=== PATIENT | female | born 1955 | race Caucasian/White ===

== ENCOUNTER 2020-03-28 14:20 | Inpatient (IN) ==
--- NOTE | 2020-03-28 15:36 | Emergency Department Note ---
Impression & Plan Atrial fibrillation with RVR, SHALOM (acute kidney injury), Venous ulcers of both lower extremities, Edema ED Provider Note Provider: Phi Leary MD DATE OF SERVICE:03/28/2020 CHIEF COMPLAINT: Leg swelling HISTORY OF PRESENT ILLNESS: Patient is a 64-year-old female who denies past medical history but does not see a doctor presenting here today brought by her sister due to bilateral leg swelling and weeping as well as some shortness of breath. Patient states her cat scratched her left garcia about a month ago and since then she is again developed some bilateral swelling and wounds with some now weeping of the bilateral legs. Patient states she is some asthma and feels a little bit short of breath. Patient states that she feels that she is losing a little bit of weight but swelling and some in her abdomen and her legs. Denies any chest pain, abdominal pain, nausea, vomiting, fevers, or falls. Patient states she has been putting some Neosporin on some wounds on her legs and the redness seems a little bit less. Denies a history of heart issues or liver issues. Patient's sister says she does find about this today and brought her here and states the patient looks thinner in her face and her arms are more swollen her abdomen and legs. REVIEW OF SYSTEMS: A total of 10 review of systems was obtained and negative except as stated above in the HPI. PAST MEDICAL HISTORY: As noted above MEDICATIONS: Denies prescription medication SOCIAL HISTORY: Patient lives by herself with her cat, is a smoker, denies alcohol use PHYSICAL EXAM: GENERAL: alert and oriented seated in the stretcher appears somewhat tearful Head: normocephalic and atraumatic EYES: No injection, discharge or icterus. NECK: Trachea midline. ENT: Mucous membranes pink and moist. LUNGS: Airway patent. No retractions slightly tachypneic. Breath sounds diminished in the bases with a few scattered wheezes. HEART: Tachycardic irregular rate and rhythm. No chest wall tenderness ABDOMEN: Soft but moderately distended without tenderness or guarding. SKIN: Acyanotic, warm, dry, without rashes EXTREMITIES: Bilateral lower extremity edema to the sacrum 2-3+. There is some weeping clear serous fluid the bilateral lower legs with few scattered areas of approximately 5 to 8 mm open wounds on both shins and calves. Mild diffuse erythema here. No crepitus. NEUROLOGICAL: No focal deficits. No aphasia. No facial droop or slurred speech. Intact sensation in the bilateral feet. EK bpm atrial fibrillation with rapid ventricular response. No acute ST segment elevation noted with some slight inferior ST flattening and nonspecific T wave changes. QTc 486. No priors available. CONTINUOUS CARDIAC MONITORING: was ordered and showed a heart rate of 100s-140s bpm in rapid atrial fibrillation Patient's laboratory studies and imaging reviewed. Differential includes Infection, dehydration, metabolic abnormality, hypo/hyperglycemia, electrolyte disturbance, anemia, hypoxia, cardiac sources, ias well as other pathologies. IMPRESSION/MEDICAL DECISION MAKING: Patient with significant lower extremity edema now tachycardic and somewhat tachypneic. Denies significant pain at this time. Question possible infection of the legs versus fluid overload from possible liver versus cardiac source versus renal source. Broad work-up was entertained. Cultures from the legs were obtained from the surface and sent to the lab. Blood culture and lactate will be obtained. Patient is significantly tachycardic upon arrival somewhat tachypneic. EKG reveals to be rapid atrial fibrillation and started on diltiazem for rate control. Troponin elevated without chest pain here likely represents demand ischemia in the setting of A. fib RVR and proBNP is also significantly elevated. Do believe she is going into heart failure with this causing the swelling in her legs secondary to this rapid A. fib. Chest x-ray does appear to have some pulmonary edema but not requiring oxygen at the current time. Given diltiazem bolus and drip with improvement of heart rate; heparinization for anticoagula tion for the A. fib was started. Likely require some diuresis and likely with a bit of SHALOM. Doubt this is sepsis. Did give a dose of ceftriaxone to cover the small wounds on bilateral legs. Both surface culture and blood cultures were obtained previously. Lactate not significantly elevated. TSH within normal limits. Covid testing negative. Updated patient and sister in the room and hospitalist was contacted. DIAGNOSIS: New onset atrial fibrillation biventricular spines, CHF, leg wounds DISPOSITION: Hospitalist will evaluate Patient was agreeable with this plan. Critical Care I have personally spent 35 minutes of critical care time in the direct managemen t of this patient. This includes bedside care, interpretation of diagnostic studies, and testing, discussion with consultants, patient, and family members, and other required patient management activities. These 35 minutes is in excess of all separately billable procedures. Past Med/Surg History Medical History Tobacco use Family History (Updated 03/28/20 @ 18:16 by Irene Khan PA-C) Father Cancer Bladder Mother Cancer Breast Other Hypertension Social History (Updated 03/28/20 @ 18:17 by Irene Khan PA-C) Smoking Status: Current every day smoker Cigarettes Per Day: 5-10; Hx Alcohol Use: No Hx Substance Use: No Preferred Language: Bruneian Beliefs That Will Affect Care: None Current Living Situation: Family Current Living Situation Comment: Roomate x 2 Other Information That Helps Us Care for You: No Feels Safe at Home: Yes Safety Concerns: Feels Safe At This Time Assistive Devices: Denture - Upper, Denture - Lower and Glasses Allergies Allergies Allergy/AdvReac Type Severity Reaction Status Date / Time No Known Allergies Allergy Verified 03/28/20 17:02 Home Meds Home Medications Medication Instructions Recorded Confirmed dextromethorphan-guaifenesin 1 tab PO QAM 03/28/20 03/28/20 [Mucinex DM] ibuprofen [Advil] 200 mg PO DIRECTED PRN 03/28/20 03/28/20 Results & Data (ED) Vital Signs Vital Signs - 24 hr 03/28/20 14:36 03/28/20 15:25 03/28/20 15:36 Temperature 36.8 C Temperature Source Temporal Artery Scan Pulse Rate 144 H 147 H 145 H Pulse Rate from SpO2 Sensor 147 H 151 H Respiratory Rate 28 H 33 H 28 H Respiratory Effort / Characteristics Non-Labored Respiratory Depth Normal Blood Pressure 151/102 H 152/116 H Blood Pressure Mean 118 128 Blood Pressure Position Sitting Pulse Oximetry 96 97 97 Oxygen Delivery Method Room Air Sepsis Recent Fever Within 48 Hours No Sepsis New/Unexplained Change in Mental Status No Sepsis Action Taken by Nursing No Action Required 03/28/20 15:40 03/28/20 15:50 03/28/20 16:00 Temperature Temperature Source Pulse Rate 149 H 165 H 150 H Pulse Rate from SpO2 Sensor 172 H 148 H Respiratory Rate 37 H 26 H 34 H Respiratory Effort / Characteristics Respiratory Depth Blood Pressure Blood Pressure Mean Blood Pressure Position Pulse Oximetry 93 97 Oxygen Delivery Method Sepsis Recent Fever Within 48 Hours Sepsis New/Unexplained Change in Mental Status Sepsis Action Taken by Nursing 03/28/20 16:04 03/28/20 16:10 03/28/20 16:20 Temperature Temperature Source Pulse Rate 144 H 160 H Pulse Rate from SpO2 Sensor 139 H Respiratory Rate 25 H 20 Respiratory Effort / Characteristics Respiratory Depth Blood Pressure Blood Pressure Mean Blood Pressure Position Pulse Oximetry 96 94 Oxygen Delivery Method Room Air Sepsis Recent Fever Within 48 Hours Sepsis New/Unexplained Change in Mental Status Sepsis Action Taken by Nursing 03/28/20 16:30 03/28/20 16:40 03/28/20 16:50 Temperature Temperature Source Pulse Rate 138 H 125 H 126 H Pulse Rate from SpO2 Sensor 134 H 121 H 149 H Respiratory Rate 17 21 25 H Respiratory Effort / Characteristics Respiratory Depth Blood Pressure 129/108 H Blood Pressure Mean 115 Blood Pressure Position Pulse Oximetry 97 94 94 Oxygen Delivery Method Room Air Room Air Room Air Sepsis Recent Fever Within 48 Hours Sepsis New/Unexplained Change in Mental Status Sepsis Action Taken by Nursing 03/28/20 17:00 03/28/20 17:10 03/28/20 17:20 Temperature Temperature Source Pulse Rate 123 H 122 H 115 H Pulse Rate from SpO2 Sensor 120 H Respiratory Rate 27 H 29 H 19 Respiratory Effort / Characteristics Respiratory Depth Blood Pressure 111/72 Blood Pressure Mean 85 Blood Pressure Position Pulse Oximetry 92 Oxygen Delivery Method Room Air Sepsis Recent Fever Within 48 Hours Sepsis New/Unexplained Change in Mental Status Sepsis Action Taken by Nursing 03/28/20 17:30 03/28/20 17:40 03/28/20 17:50 Temperature Temperature Source Pulse Rate 123 H 116 H 118 H Pulse Rate from SpO2 Sensor Respiratory Rate 21 21 21 Respiratory Effort / Characteristics Respiratory Depth Blood Pressure 123/92 Blood Pressure Mean 102 Blood Pressure Position Pulse Oximetry Oxygen Delivery Method Sepsis Recent Fever Within 48 Hours Sepsis New/Unexplained Change in Mental Status Sepsis Action Taken by Nursing 03/28/20 18:00 03/28/20 18:10 Temperature Temperature Source Pulse Rate 124 H 110 H Pulse Rate from SpO2 Sensor Respiratory Rate 21 23 Respiratory Effort / Characteristics Respiratory Depth Blood Pressure 118/94 Blood Pressure Mean 102 Blood Pressure Position Pulse Oximetry Oxygen Delivery Method Sepsis Recent Fever Within 48 Hours Sepsis New/Unexplained Change in Mental Status Sepsis Action Taken by Nursing Laboratory Data Result diagrams: 03/28/20 15:55 03/28/20 15:55 Lab Results 03/28/20 03/28/20 03/28/20 Range/Units 15:55 15:55 15:55 WBC 11.09 H (4.8-10.8) K/uL RBC 5.02 (4.2-5.4) M/uL Hgb 14.6 (12.0-16.0) g/dL Hct 44.1 (37-47) % MCV 87.8 (80-100) fL MCH 29.1 (25-34) pg MCHC 33.1 (32-36) g/dL RDW Std Deviation 53.3 H (36.4-46.3) fL RDW Coeff of Michelle 16.5 H (11.5-14.5) % Plt Count 276 (130-400) K/uL MPV 11.8 H (7.4-10.4) fL Immature Gran % (Auto) 0.3 % Neut % (Auto) 76.8 % Lymph % (Auto) 11.7 % Churchill % (Auto) 10.6 % Eos % (Auto) 0.3 % Baso % (Auto) 0.3 % Neut # (Auto) 8.53 H (1.4-6.5) K/uL Lymph # (Auto) 1.30 (1.2-3.4) K/uL Churchill # (Auto) 1.17 H (0.11-0.59) K/uL Eos # (Auto) 0.03 (0-0.5) K/uL Baso # (Auto) 0.03 (0-0.2) K/uL Immature Gran # (Auto) 0.03 H (0.00-0.02) K/uL PT 11.9 (9.0-12.0) Seconds INR 1.1 (0.9-1.1) APTT 23.7 (21.0-31.0) Seconds PTT Ratio 0.8 Sodium 137 (136-145) mmol/L Potassium 3.8 (3.5-5.1) mmol/L Chloride 109 H (98-107) mmol/L Carbon Dioxide 22 (21-32) mmol/L Anion Gap 6.0 (3-11) BUN 31 H (7-18) mg/dl Creatinine 1.52 H (0.6-1.2) mg/dl Est Cr Clr Drug Dosing 38.3 ml/min Est GFR ( Amer) 41.0 Est GFR (Non-Af Amer) 35.4 BUN/Creatinine Ratio 20.6 H (10-20) Glucose 116 H (70-99) mg/dl Lactate (0.4-2.0) mmol/L Calcium 8.8 (8.5-10.1) mg/dl Magnesium 2.2 (1.8-2.4) mg/dl Total Bilirubin 1.2 H (0.2-1) mg/dl AST 31 (15-37) U/L ALT 41 (12-78) U/L Alkaline Phosphatase 141 H (45-117) U/L Troponin I 0.856 H* (0-0.045) ng/ml C-Reactive Protein 3.40 H (0-0.29) mg/dl NT-Pro-B Natriuret Pep 97839 H (0-900) pg/ml Total Protein 7.6 (6.4-8.2) gm/dl Albumin 3.3 L (3.4-5.0) gm/dl Globulin 4.3 H (2.5-4.0) gm/dl Albumin/Globulin Ratio 0.8 L (0.9-2) TSH 1.560 (0.300-4.500) uIu/ml Specimen Hemolysis COVID-19 Eval Order SARS-CoV-2 (PCR) (Negative) Influenza Type A (PCR) (Neg) Influenza Type B (PCR) (Neg) RSV (RT-PCR) (Neg) 03/28/20 03/28/20 03/28/20 Range/Units 16:20 16:20 16:20 WBC (4.8-10.8) K/uL RBC (4.2-5.4) M/uL Hgb (12.0-16.0) g/dL Hct (37-47) % MCV (80-100) fL MCH (25-34) pg MCHC (32-36) g/dL RDW Std Deviation (36.4-46.3) fL RDW Coeff of Michelle (11.5-14.5) % Plt Count (130-400) K/uL MPV (7.4-10.4) fL Immature Gran % (Auto) % Neut % (Auto) % Lymph % (Auto) % Churchill % (Auto) % Eos % (Auto) % Baso % (Auto) % Neut # (Auto) (1.4-6.5) K/uL Lymph # (Auto) (1.2-3.4) K/uL Churchill # (Auto) (0.11-0.59) K/uL Eos # (Auto) (0-0.5) K/uL Baso # (Auto) (0-0.2) K/uL Immature Gran # (Auto) (0.00-0.02) K/uL PT (9.0-12.0) Seconds INR (0.9-1.1) APTT (21.0-31.0) Seconds PTT Ratio Sodium (136-145) mmol/L Potassium (3.5-5.1) mmol/L Chloride (98-107) mmol/L Carbon Dioxide (21-32) mmol/L Anion Gap (3-11) BUN (7-18) mg/dl Creatinine (0.6-1.2) mg/dl Est Cr Clr Drug Dosing ml/min Est GFR ( Amer) Est GFR (Non-Af Amer) BUN/Creatinine Ratio (10-20) Glucose (70-99) mg/dl Lactate 1.8 (0.4-2.0) mmol/L Calcium (8.5-10.1) mg/dl Magnesium (1.8-2.4) mg/dl Total Bilirubin (0.2-1) mg/dl AST (15-37) U/L ALT (12-78) U/L Alkaline Phosphatase (45-117) U/L Troponin I (0-0.045) ng/ml C-Reactive Protein (0-0.29) mg/dl NT-Pro-B Natriuret Pep (0-900) pg/ml Total Protein (6.4-8.2) gm/dl Albumin (3.4-5.0) gm/dl Globulin (2.5-4.0) gm/dl Albumin/Globulin Ratio (0.9-2) TSH (0.300-4.500) uIu/ml Specimen Hemolysis COVID-19 Eval Order CovFluRsv at [facility] SARS-CoV-2 (PCR) NEGATIVE (Negative) Influenza Type A (PCR) Negative (Neg) Influenza Type B (PCR) Negative (Neg) RSV (RT-PCR) Negative (Neg) Administered Medications Diltiazem HCl 125 mg/ Dextrose 125 mls @ 5 mls/hr IV .Q24H [facility]; Protocol Stop: 04/27/20 16:14 Last Titration: 03/28/20 18:09 Dose: 15 mg/hr, 15 mls/hr Documented by: [id number] Cosigned by: [id number] Titration: 03/28/20 17:19 Dose: 10 mg/hr, 10 mls/hr Documented by: [id number] Cosigned by: [id number] Admin: 03/28/20 16:32 Dose: 5 mg/hr, 5 mls/hr Documented by: [id number] Cosigned by: [id number] Heparin Sodium/Dextrose (Heparin Sodium/Dextrose) 25,000 units in 500 mls @ 16 mls/hr IV .Q24H [facility]; Protocol Stop: 04/27/20 17:14 Last Admin: 03/28/20 17:27 Dose: 800 units/hr, 16 mls/hr Documented by: [id number] Cosigned by: [id number] Clindamycin Phosphate 600 mg/ (Dextrose) 54 mls @ 100 mls/hr IV Q8H [facility] Stop: 04/04/20 18:33 Last Admin: 03/28/20 20:19 Dose: 100 mls/hr Documented by: [id number] Nicotine (Nicotine 21 Mg/24 Hr Tdsy) 21 mg TD QAM [facility] Stop: 04/27/20 17:44 Last Admin: 03/28/20 17:49 Dose: 21 mg Documented by: [id number] Discontinued Medications Diltiazem HCl (Diltiazem Hcl 5 Mg/Ml 5 Ml Vial) 10 mg IV NOW STA Stop: 03/28/20 16:10 Last Admin: 03/28/20 16:31 Dose: 10 mg Documented by: [id number] Cosigned by: [id number] Heparin Sodium (Porcine) (Heparin Sod (Porcine) 1000 Unit/Ml 10 Ml Vial) Confirm Administered Dose 10,000 units .ROUTE .STK-MED ONE Stop: 03/28/20 17:16 Last Admin: 03/28/20 17:28 Dose: 4,000 units Documented by: [id number] Cosigned by: [id number] Heparin Sodium/Dextrose (Heparin Iv Low Dose With Bolus) 1 ea IV NOW STA; Protocol Stop: 03/28/20 17:08 Last Admin: 03/28/20 17:27 Dose: 1 ea Documented by: [id number] Ceftriaxone Sodium (Rocephin) 1,000 mg in 50 mls @ 100 mls/hr IV NOW STA Stop: 03/28/20 17:36 Last Admin: 03/28/20 17:19 Dose: 100 mls/hr Documented by: [id number] Miscellaneous (Stat Iv Infusion Titration Per Protocol) 1 ea N/A NOW STA Stop: 03/28/20 16:10 Last Admin: 03/28/20 16:32 Dose: 1 ea Documented by: [id number] Discharge Plan Visit Data Chief Complaint: Infection, Wound Stated Complaint: LOWER LEGS ARE SWOLLEN AND SEEPING ED Provider: Phi Leary Discharge Problem: Atrial fibrillation with RVR, SHALOM (acute kidney injury), Venous ulcers of both lower extremities, Edema Patient Disposition: Admitted As Inpatient Condition: Fair Discharge Instructions Interventions: ED Discharge Assessment Last Done: 03/28/20 19:31
[2020-03-28] MEDS ORDERED: STAT IV Infusion **Titration per Protocol STA (16:09)
[2020-03-28] MEDS ORDERED: dilTIAZem HCl 5 MG/ML 5 ML VIAL IV STA (16:09)
[2020-03-28 16:10] LABS: Basophils # (auto) 0.03 K/uL (0-0.2); Basophils % (auto) 0.3 %; Eosinophils # (auto) 0.03 K/uL (0-0.5); Eosinophils % (auto) 0.3 %; Hematocrit (blood only) 44.1 % (37-47); Hemoglobin 14.6 g/dL (12.0-16.0); Immature Granulocytes # (auto) 0.03 K/uL (0.00-0.02); Immature Granulocytes % (auto) 0.3 %; Lymphocytes % (auto) 11.7 %; Mean Corpuscular Hemoglobin 29.1 pg (25-34); Mean Corpuscular Hgb Conc 33.1 g/dL (32-36); Mean Corpuscular Volume 87.8 fL (80-100); Mean Platelet Volume 11.8 fL (7.4-10.4); Monocytes # (auto) 1.17 K/uL (0.11-0.59); Monocytes % (auto) 10.6 %; Neutrophils # (auto) 8.53 K/uL (1.4-6.5); Neutrophils % (auto) 76.8 %; Platelet Count 276 K/uL (130-400); RDW Coefficient of Variation 16.5 % (11.5-14.5); RDW Standard Deviation 53.3 fL (36.4-46.3); Red Blood Count 5.02 M/uL (4.2-5.4); White Blood Count 11.09 K/uL (4.8-10.8)
--- NOTE | 2020-03-28 16:12 | XRay Report ---
XR chest 1V portable CLINICAL HISTORY: Dyspnea, leg swelling COMPARISON STUDY: No previous studies for comparison. FINDINGS: Lung volumes are normal. There is no pneumothorax. There are small bilateral pleural effusi ons with bibasilar opacities. Interstitial thickening suggests pulmonary edema. There is moderate car diomegaly. IMPRESSION: 1. Mild interstitial pulmonary edema, small bilateral pleural fusions and bibasilar opacities which f avor atelectasis although consolidation could appear similar. Radiographic follow-up is recommended. 2. Cardiomegaly. ACT 112: Negative or not required by law. Electronically signed by: Stiven Gomez M.D. 03/28/2020 4:11 PM
[2020-03-28 16:24] LABS: INR 1.1 (0.9-1.1); Partial Thromboplastin Ratio 0.8; Partial Thromboplastin Time 23.7 Seconds (21.0-31.0); Prothrombin Time 11.9 Seconds (9.0-12.0)
[2020-03-28] MEDS: dilTIAZem HCL 125 MG in DEXTROSE 5% 100 ML IV SCH (16:32)
[2020-03-28 16:34] LABS: Potassium 3.8 mmol/L (3.5-5.1)
[2020-03-28 16:35] LABS: Albumin Level 3.3 gm/dl (3.4-5.0); BUN Creatinine Ratio 20.6 (10-20); Calcium 8.8 mg/dl (8.5-10.1); Creatinine Clr Calc Pharmacy 38.3 ml/min; Est GFR (Non-African American) 35.4; Magnesium 2.2 mg/dl (1.8-2.4)
[2020-03-28 16:51] LABS: Albumin Globulin Ratio 0.8 (0.9-2); Bilirubin,Total 1.2 mg/dl (0.2-1); C Reactive Protein 3.4 mg/dl (0-0.29); Globulin 4.3 gm/dl (2.5-4.0); Thyroid Stimulating Hormone 1.56 uIu/ml (0.300-4.500); Total Protein 7.6 gm/dl (6.4-8.2); Troponin I 0.856 ng/ml (0-0.045)
[2020-03-28] MEDS ORDERED: cefTRIAXone SODIUM 1,000 MG/50 ML BAG IV STA (17:07)
[2020-03-28] MEDS ORDERED: Heparin IV Low Dose WITH Bolus IV STA (17:07)
[2020-03-28 17:14] LABS: Influenza A virus by PCR Negative (Neg); Influenza B virus by PCR Negative (Neg); RSV by PCR Negative (Neg); SARS CoV2 RNA(COVID-19) InHosp NEGATIVE (Negative)
[2020-03-28] MEDS ORDERED: HEPARIN SOD (PORCINE) 1000 UNIT/ML 10 ML VIAL ONE (17:15)
[2020-03-28] MEDS: HEPARIN SODIUM/DEXTROSE 25,000 UNITS/500 ML BAG IV SCH (17:27)
--- NOTE | 2020-03-28 17:37 | History & Physical Report ---
Date of Service March 28, 2020 Assessment & Plan (1) Atrial fibrillation with RVR: -Admit to telemetry -Started on Cardizem drip in the ER, can titrate up as patient is currently on 5 mg, heart rate is in the 120s, was in 140s on admission, if no improvement in rate control with titrating Cardizem drip up can add on low-dose metoprolol p.o. in hopes of conversion -Continue heparin drip for now, discussed starting a DOAC with the patient at bedside, consider transition to one of these agents tomorrow -2D echo ordered -Troponin elevated at 0.856 on admission, trend x2 more sets -Patient is significantly volume overloaded at time of admission, 3+ pitting with numerous venous stasis ulcers over lower extremities which are weeping and saturating her sheets, pitting edema over the abdomen, encourage elevation of the legs -Lasix 40 mg IV BID with first dose now -Fluid restriction for now of 1500ml daily, pt had been drinking lots of fluids to help with reducing amount of edema in her legs, discussion (2) SHALOM (acute kidney injury): -Creatinine elevated at 1.52, BUN 31, no other available labs to compare to, likely elevated somewhat in the setting of severe hypervolemia, monitor with a.m. labs (3) Tobacco use: -Discussion regarding cessation at bedside held, patient would like to quit, nicotine patch placed on the patient's arm while at bedside. -Smokes 10 cigarettes/day, discussed attempting to reduce this by few cigarettes per week to help her quit (4) Venous ulcers of both lower extremities: -Developed over the past month, will order IV clindamycin to cover for any infectious source in the lower legs although this appears to be due to severe hypervolemia -Wound consulted -Bacitracin ointment once wounds stop weeping so much serosanguineous fluid -Wound culture of ulceration has been sent to the lab (5) Constipation: -Last bowel movement was 3 days ago, will add on MiraLAX and Dulcolax p.o. now (6) Edema: -Lower extremities and abdomen -Secondary to A. fib with RVR, await echo to determine if any systolic or diastolic dysfunction -Total bilirubin = 1.2, alk phos slightly elevated at 141-sister mention to ER attending that alcohol use was significant in the past, patient denies any alcohol use currently, concern for possible history of liver involvement? Consider further work-up for cirrhosis -Follow a.m. LFTs DVT PPx: Heparin drip CODE: Full code Dispo: From home, likely to remain in the hospital x 2 days, will need PCP established at [facility] prior to discharge History of Present Illness Primary Care Provider: NO PCP This is a 64-year-old female with no past medical history other than significant smoking history, 1/2 to 1 pack cigarettes daily since age 23, currently smoking 10 cigarettes daily who presents with progressive leg edema x 1 month. She reports that she has been elevating her legs and drinking lots of water to try and flush things out to help alleviate swelling of the legs. She has not follo wed with family doctor for many years, and only takes Mucinex and an occasional Advil for pain. Within the past month she has had progressive orthopnea and now must sleep with at least 2 pillows so that she does not feel shortness of breath, and notes that her legs are weeping from multiple sores which are open in various locations over her lower legs. There are no juju areas of bright red infection around the weeping wounds, however has had issues with keeping her legs dry. She reports that up until 1 month ago she was able to lie flat had no issues with swelling ever before. Her sister is present with her at bedside, and was the one who prompted her sister to come to the ER after seeing her legs earlier today. The patient also notes that she is somewhat constipated, last bowel movement was 3 days ago which is unusual for her. She has been eating and drinking well otherwise. Her abdomen feels swollen and distended currently but denies any specific pain. Once in the ER patient was found to have elevated BNP= 58911, troponin = 0.856, EKG showing A. fib with rates in the 140s, and so was started on Cardizem drip in the ER at 5 mg/h. COVID-19 is negative. Pt lives in an apartment with a roommate and his girlfriend. Denies any surgical hx other than wisdom teeth removal. Family Hx: mother had breast cancer and of other advanced age and complications 4 years ago, father of bladder cancer, hypertension in both sides of the family. Allergies Allergy/AdvReac Type Severity Reaction Status Date / Time No Known Allergies Allergy Verified 03/28/20 17:02 Home Medications Medication Instructions Recorded Confirmed Type dextromethorphan-guaifenesin 1 tab PO QAM 03/28/20 03/28/20 History [Mucinex DM] ibuprofen [Advil] 200 mg PO DIRECTED PRN 03/28/20 03/28/20 History Past Med/Surg History Medical History Tobacco use Family History (Updated 03/28/20 @ 18:16 by Irene Khan PA-C) Father Cancer Bladder Mother Cancer Breast Other Hypertension Social History (Updated 03/28/20 @ 18:17 by Irene Khan PA-C) Smoking Status: Current every day smoker Cigarettes Per Day: 5-10; Hx Alcohol Use: No Hx Substance Use: No Preferred Language: Icelandic Beliefs That Will Affect Care: None Current Living Situation: Family Current Living Situation Comment: Roomate x 2 Other Information That Helps Us Care for You: No Feels Safe at Home: Yes Safety Concerns: Feels Safe At This Time Assistive Devices: Denture - Upper, Denture - Lower and Glasses Review of Systems Review of Systems: Constitutional: No fever, sweats or chills Eyes: No diplopia, no worsening or blurred vision ENT: normal hearing, no trouble swallowing Respiratory: + Orthopnea with lying flat, + occasional cough, + occasional sputum, no hemoptysis, no dyspnea at rest or on exertion Cardiovascular: No chest pain, tightness or palpitations, no syncopal episodes or lightheadedness Abdomen: + Distention, + constipation, last BM was 3 days ago, no pain, nausea, vomiting, diarrhea Musculoskeletal: No joint pain, calf pain, + swelling as per HPI Neurologic: No weakness, numbness/tingling, or balance problems Psychiatric: No anxiety or depression Skin: No rash or itch, + multiple areas of weeping wounds over bilateral lower legs Physical Exam Physical Exam: General: awake, alert, no apparent distress Head: Normocephalic, atraumatic ENT: PERRL, EOMI, no pharyngeal exudate, mucous membranes moist Chest: On room air with O2 sats at 92%, Coarse breath sounds throughout, diminished at bases bilaterally Cardiac: Irregularly irregular, HR = 1 20s at bedside, no murmur, no JVD, normal peripheral pulses, good capillary refill Abdominal: NABS x 4 quadrants, soft, + abdominally distended, + edematous with pitting in abdomen throughout, nontender to palpation, no rebound or guarding Extremities: 3+ pitting edema up to hips, dull erythema BLE, numerous 1 cm diameter ulcerations with serosanguineous drainage over BLE, calfs nontender to palpation Psych: Normal mood and affect, + anxious, + embarrassed Neuro: AAO x 3, strength intact bilaterally and rated 5/5, no motor deficits, speech is clear, no peripheral sensory deficits Results & Data Results & Data ([facility]) Vital Signs (Past 12 Hours) Vital Signs Temp Pulse Resp BP Pulse Ox 03/28/20 17:00 123 H 27 H 111/72 92 03/28/20 16:50 126 H 25 H 94 03/28/20 16:40 125 H 21 94 03/28/20 16:30 138 H 17 129/108 H 97 03/28/20 16:20 160 H 20 03/28/20 16:10 144 H 25 H 94 03/28/20 16:04 96 03/28/20 16:00 150 H 34 H 97 03/28/20 15:50 165 H 26 H 93 03/28/20 15:40 149 H 37 H 03/28/20 15:36 145 H 28 H 97 03/28/20 15:25 147 H 33 H 152/116 H 97 03/28/20 14:36 36.8 C 144 H 28 H 151/102 H 96 Diagnostic Findings XR chest 1V portable CLINICAL HISTORY: Dyspnea, leg swelling COMPARISON STUDY: No previous studies for comparison. FINDINGS: Lung volumes are normal. There is no pneumothorax. There are small bilateral pleural effusions with bibasilar opacities. Interstitial thickening suggests pulmonary edema. There is moderate cardiomegaly. IMPRESSION: 1. Mild interstitial pulmonary edema, small bilateral pleural fusions and bibasilar opacities which favor atelectasis although consolidation could appear similar. Radiographic follow-up is recommended. 2. Cardiomegaly. ECG Additional Comments: 28-MAR-2020 15:42:33 [facility]-EDSTAT ROUTINE RETRIEVAL Atrial fibrillation with rapid ventricular response Possible Anterior infarct , age undetermined Abnormal ECG No previous ECGs avail able 25mm/s 10mm/mV 150Hz 9.0.9 12SL 241 SARAI: 16 Referred by: REFERRED SELF Unconfirmed Vent. rate 148 BPM ID interval * ms QRS duration 86 ms QT/QTc 310/486 ms Code Status & VTE Plan Code Status Full code-discussed with patient at bedside Supervising Physician Co-Signing Physician Notes Attending Attestation & Admission Note: Pt seen/examined, chart reviewed, care plan d/w JUNAID Khan. I agree w/ the romero components of her documentation. 64yo female with long-standing tobacco dependence who presents w/ progressive LE edema, increasing abd girth, and dyspnea with exertion. Denies palpitations. Has not seen a physician in many years. 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 PMH, PSH, allergies, meds, sochx, famhx - reviewed vitals: tachy, BP wnl, O2 sats in RA wnl gen - looks much older than stated age, disheveled/unkempt, NAD neck - JVD 2/[address] up neck heart - tachy, irregular, s1 s2 lungs - crackles bases; decreased BS bases; end-exp wheeze scattered abd - distended (ascites?), BS+, liver edge palpable ext - 3-4+ pitting edema extending to the thighs vasc - cap refill b/l feet >2 secs; pulses both feet 1+ at best skin - multiple ulcerations b/l shins, some covered w/ eschar labs reviewed EKG - a.fib w/ RVR cxr reviewed A/P: 1. new-onset acute CHF with significant volume overload 2. a.fib with RVR - chronicity uncertain 3. elevated troponin - likely myocardial demand ischemia in setting of #1, #2 4. chronic tobacco dependence 5. multiple b/l leg ulcers 6. ?PAD legs? acute CHF could be tachyarrhythmia induced from a.fib cannot rule out ischemia causing CHF diurese echo cardiology consult cardizem drip for a.fib rate control; low threshold for beta lynn; if echo shows depressed EF then would need to d/c cardizem tobacco cessation needed local wound care to ulcers - abx as well ultimately needs PAD w/u Cj Hendrickson MD PG Care Time/CCT Total # of Minutes Spent Total Time Spent with Patient: Total time spent is greater than 50% in coordination of care (as documented) at patient's floor/unit and/or counseling patient: Coding Level of Care Code 35660 Initial Inpt Care Lvl 3 Diagnoses Atrial fibrillation with RVR I48.91 SHALOM (acute kidney injury) N17.9 Tobacco use Z72.0 Venous ulcers of both lower extremities I83.019; I83.029; L97.919; L97.929 Constipation K59.00 Edema R60.9
[2020-03-28] MEDS: NICOTINE 21 MG/24 HR TDSY TD SCH (17:49)
[2020-03-28] MEDS ORDERED: FUROSEMIDE 40 MG TAB PO SCH (18:34)
[2020-03-28] MEDS ORDERED: ACETAMINOPHEN 325 MG TAB PO PRN (19:59)
[2020-03-28] MEDS ORDERED: ONDANSETRON INJ 2 MG/ML 2 ML VIAL IV PRN (19:59)
[2020-03-28] MEDS ORDERED: DEXTROMETHORPHAN POLYMR COMPLX 30 MG/5 ML UDP PO PRN (20:10)
[2020-03-28] MEDS: CLINDAMYCIN 600 MG in DEXTROSE 5% 50 ML IV SCH (20:19)
[2020-03-28] MEDS: POLYETHYLENE (MIRALAX) 17 GM PACK PO SCH (20:40)
[2020-03-28] MEDS: bisacodyL 5 MG TABEC PO SCH (20:53)
[2020-03-28] MEDS: BACITRACIN OINT 15 GM TUBE EXT SCH (20:55)
[2020-03-28] MEDS ORDERED: Nursing to Pharmacy Communication SCH (22:00)
[2020-03-28] MEDS: guaiFENesin 600 MG TABCR PO SCH (22:06)
[2020-03-29 00:26] LABS: Appearance Urine Clear (Clear); Bacteria Urine Automated Negative (Negative); Blood Urine Negative (Negative); Color Urine Dark Yellow; Epithelial Cell Urine Auto >30 /lpf (0-5); Glucose Urine UA Negative (Negative); Ketones Urine Trace (Negative); Leukocyte Esterase Urine Negative (Negative); Nitrite Urine Negative (Negative); Protein Urine 1+ (Negative); Specific Gravity Urine 1.027 (1.000-1.030); Urobilinogen Urine Negative (Negative)
[2020-03-29 00:29] LABS: Bilirubin Urine 1+ (Negative)
[2020-03-29 00:33] LABS: Partial Thromboplastin Time 56.4 Seconds (21.0-31.0)
[2020-03-29 00:38] LABS: RBC Urine Automated 0-4 /hpf (0-4)
[2020-03-29] MEDS: dilTIAZem HCL 125 MG in DEXTROSE 5% 100 ML IV SCH ×2 (00:50→12:57)
[2020-03-29] MEDS: CLINDAMYCIN 600 MG in DEXTROSE 5% 50 ML IV SCH ×3 (02:57→18:11)
[2020-03-29 04:37] LABS: Hematocrit (blood only) 40.4 % (37-47); Hemoglobin 13.2 g/dL (12.0-16.0); Mean Corpuscular Hemoglobin 28.6 pg (25-34); Mean Corpuscular Hgb Conc 32.7 g/dL (32-36); Mean Corpuscular Volume 87.6 fL (80-100); Mean Platelet Volume 11.5 fL (7.4-10.4); Platelet Count 252 K/uL (130-400); RDW Coefficient of Variation 16.2 % (11.5-14.5); RDW Standard Deviation 51.7 fL (36.4-46.3); Red Blood Count 4.61 M/uL (4.2-5.4); White Blood Count 11.54 K/uL (4.8-10.8)
[2020-03-29 04:47] LABS: Partial Thromboplastin Ratio 1.3; Partial Thromboplastin Time 36.5 Seconds (21.0-31.0)
[2020-03-29 04:54] LABS: Albumin Level 2.9 gm/dl (3.4-5.0); BUN Creatinine Ratio 23.6 (10-20); Calcium 8.3 mg/dl (8.5-10.1); Creatinine Clr Calc Pharmacy 41.3 ml/min; Est GFR (African American) 45.7; Est GFR (Non-African American) 39.4; Magnesium 2.1 mg/dl (1.8-2.4); Potassium 3.8 mmol/L (3.5-5.1)
[2020-03-29 05:06] LABS: Albumin Globulin Ratio 0.8 (0.9-2); Bilirubin Direct 0.6 mg/dl (0-0.2); Bilirubin,Total 1.1 mg/dl (0.2-1); Globulin 3.5 gm/dl (2.5-4.0); Phosphorus 3.5 mg/dl (2.5-4.9); Total Protein 6.4 gm/dl (6.4-8.2); Troponin I 0.507 ng/ml (0-0.045)
[2020-03-29] MEDS ORDERED: HEPARIN IV BOLUS 3,000 UNITS in SYRINGE 0 ML IV ONE (05:15)
[2020-03-29 06:20] LABS: Estimated Average Glucose 137 mg/dl; Hemoglobin A1C 6.4 % (4.5-5.6)
[2020-03-29] MEDS: FUROSEMIDE 40 MG in SYRINGE 0 ML IV SCH ×2 (08:25→16:48)
[2020-03-29] MEDS: POTASSIUM CHLORIDE CRTAB 20 MEQ TABCR PO SCH (08:25)
[2020-03-29] MEDS: POLYETHYLENE (MIRALAX) 17 GM PACK PO SCH (08:26)
[2020-03-29] MEDS: NICOTINE 21 MG/24 HR TDSY TD SCH (08:44)
[2020-03-29] MEDS: bisacodyL 5 MG TABEC PO SCH (08:46)
[2020-03-29] MEDS ORDERED: guaiFENesin 600 MG TABCR PO SCH (09:00)
[2020-03-29] MEDS ORDERED: NON-FORMULARY MEDICATION (Dextromethorphan-Guaifenesin [Mucinex Dm] 30-600 mg Tablet Exten PO SCH (09:00)
--- NOTE | 2020-03-29 09:11 | XCELERA ---
[id number]
[2020-03-29] MEDS: BACITRACIN OINT 15 GM TUBE EXT SCH ×2 (10:05→20:13)
--- NOTE | 2020-03-29 10:33 | Cardiology Consultation ---
Date of Consultation March 29, 2020 Assessment & Plan (1) Atrial fibrillation with RVR: The patient does not appear to have symptoms associated with her atrial fibrillation. The duration of her atrial fibrillation is also unknown although I suspect several weeks at least. She has elevated ventricular rates with likely have contributed to reduced LV systolic function. She was started on diltiazem with significant improvement in her overall heart rates. However, given her reduced LV function she would be better served with beta-blockade. I think we will try and transition her to a beta-lynn today. Based on her age, gender, reduced systolic function and likely diabetes, she has an increased risk for stroke. Would recommend systemic anticoagulation. She was started on heparin but could easily be placed on a novel oral anticoagulant. Given her mildly reduced renal function I would suggest Eliquis 5 mg twice daily. (2) Cardiomyopathy: She has significantly reduced LV systolic function which likely accounts for some of her peripheral edema. Curiously, she does not seem to have much in the way of breathing trouble. She had markedly elevated N terminal proBNP. I would agree with continued diuresis monitoring her renal function and electrolytes closely. We will transition her to a beta-lynn. Depending on her blood pressure and renal function we could consider Lj inhibition, although her cardiomyopathy is likely related to rapid heart rates for an extended period. Hopefully with control of her heart rates over the next few weeks can see improvement in the overall LV function. (3) Mitral regurgitation: Moderate to severe. Eccentric: Echo suggesting this is not simply functional MR. Will need to reassess this once her rate has been better controlled. Hopefully her LV function will return to normal and she may be a candidate for a valve intervention if necessary. (4) Elevated troponin: Very mildly elevated cardiac biomarkers. I believe this is more likely related to her degree of LV dysfunction and atrial fibrillation. I do not believe this is manufacturer's service representative of an acute coronary syndrome. She certainly could have occult coronary disease and in the absence of significant improvement in her LV function she will require an evaluation for ischemic heart disease. Currently no symptoms of ischemic heart disease. She will be placed on systemic anticoagulation. She has some risk factors for coronary disease, but her the profile is quite good, and I am not confident she benefits from empiric statins at this point. History of Present Illness Reason for Consultation: Atrial fibrillation, edema Requesting Physician: Birdie Attending Physician: Bob A Saborio History of Present Illness The patient is a 64-year-old woman without a known history of cardiac disease who was concerned about progressive edema in her lower extremities. She states that a few weeks ago she did suffer several cat scratches to her legs while watching her neighbor's cat. Subsequently she began to notice some swelling in her lower extremities. This has made it difficult for ambulation. Curiously, she has not endorsed much in the way of other symptoms. She did not notice significant worsening dyspnea or dyspnea of any limiting variety. She has not noticed any rapid heartbeat or chest discomfort. She has not noticed any orthopnea or paroxysmal nocturnal dyspnea although she does tend to sleep somewhat upright. She has done this for many years and this has not changed recently. She has not endorsed symptoms of dizziness or lightheadedness. She did not endorse syncope. She is ambulatory around her residence and can ascend and descend stairs without limitation or stopping. Allergies Allergy/AdvReac Type Severity Reaction Status Date / Time No Known Allergies Allergy Verified 03/28/20 17:02 Home Medications Medication Instructions Recorded Confirmed Type dextromethorphan-guaifenesin 1 tab PO QAM 03/28/20 03/28/20 History [Mucinex DM] ibuprofen [Advil] 200 mg PO DIRECTED PRN 03/28/20 03/28/20 History Patient History Medical History Tobacco use Family History Father Cancer Bladder Mother Cancer Breast Other Hypertension Social History Smoking Status: Current every day smoker Cigarettes Per Day: 5-10; Hx Alcohol Use: No Hx Substance Use: No Preferred Language: Lao Beliefs That Will Affect Care: None Current Living Situation: Family Current Living Situation Comment: Roomate x 2 Other Information That Helps Us Care for You: No Feels Safe at Home: Yes Safety Concerns: Feels Safe At This Time Assistive Devices: Denture - Upper, Denture - Lower and Glasses Review of Systems Review of Systems: All systems reviewed & are unremarkable except as noted in HPI & below No recent symptoms of fevers or chills. No coughing. Physical Exam Physical Exam: She is alert and oriented x3. Mood affect appear normal. She answered all questions appropriately. HEENT: Sclerae are anicteric. Pupils are equal and reactive to light and accommodation. Extraocular movements were intact. Neuro: Cranial nerves intact Neck: Examination of the submandibular region did not reveal any significant lymphadenopathy. Carotids are palpable bilaterally and free of bruits on auscultation. There was no evidence of jugular venous distention. The thyroid was not enlarged. Lungs: Coarse upper respiratory sounds with expiratory rhonchi. Normal respiratory effort. No wheezing. Cardiac: The rhythm was irregular. S1 and S2 were normal. Holosystolic murmur variable intensity. The PMI was not markedly displaced on palpation. Abdomen: The abdomen was soft and nontender. Extremities: Patient has bilateral radial pulses that are equal in intensity. There is no evidence cyanosis or clubbing. Severe lower extremity edema with excoriations. Mild erythema. Skin: There are no rashes noted on examination today. Results & Data ([facility]) Vital Signs (Past 12 Hours) Vital Signs Temp Pulse Pulse Resp BP Pulse Ox 03/29/20 08:58 88 18 101/68 03/29/20 08:00 88 03/29/20 07:53 36.8 C 94 H 16 100/67 95 03/29/20 06:12 89 03/29/20 04:29 36.3 C L 104 H 18 104/68 91 03/29/20 00:52 94/71 L 03/28/20 23:05 36.4 C L 84 18 95/62 L 93 Laboratory Results Abnormal Lab Results 03/28/20 03/28/20 03/28/20 15:55 15:55 15:55 WBC 11.09 H RBC 5.02 Hgb 14.6 Hct 44.1 MCV 87.8 MCH 29.1 MCHC 33.1 RDW Std Deviation 53.3 H RDW Coeff of Michelle 16.5 H Plt Count 276 MPV 11.8 H Immature Gran % (Auto) 0.3 Neut % (Auto) 76.8 Lymph % (Auto) 11.7 [place] % (Auto) 10.6 Eos % (Auto) 0.3 Baso % (Auto) 0.3 Neut # (Auto) 8.53 H Lymph # (Auto) 1.30 [place] # (Auto) 1.17 H Eos # (Auto) 0.03 Baso # (Auto) 0.03 Immature Gran # (Auto) 0.03 H PT 11.9 INR 1.1 APTT 23.7 PTT Ratio 0.8 Sodium 137 Potassium 3.8 Chloride 109 H Carbon Dioxide 22 Anion Gap 6.0 BUN 31 H Creatinine 1.52 H Est Cr Clr Drug Dosing 38.3 Est GFR ( Amer) 41.0 Est GFR (Non-Af Amer) 35.4 BUN/Creatinine Ratio 20.6 H Glucose 116 H Estimat Average Glucose Hemoglobin A1c Lactate Calcium 8.8 Phosphorus Magnesium 2.2 Total Bilirubin 1.2 H Direct Bilirubin AST 31 ALT 41 Alkaline Phosphatase 141 H Troponin I 0.856 H* C-Reactive Protein 3.40 H NT-Pro-B Natriuret Pep 26574 H Total Protein 7.6 Albumin 3.3 L Globulin 4.3 H Albumin/Globulin Ratio 0.8 L Triglycerides Cholesterol LDL Cholesterol, Calc VLDL Cholesterol, Calc HDL Cholesterol Cholesterol/HDL Ratio TSH 1.560 Specimen Hemolysis Urine Color Urine Appearance Urine pH Ur Specific [place] Urine Protein Urine Glucose (UA) Urine Ketones Urine Blood Urine Nitrite Urine Bilirubin Urine Urobilinogen Ur Leukocyte Esterase Urine WBC (Auto) Urine RBC (Auto) U Hyaline Cast (Auto) U Epithel Cells (Auto) Urine Bacteria (Auto) COVID-19 Eval Order SARS-CoV-2 (PCR) Influenza Type A (PCR) Influenza Type B (PCR) RSV (RT-PCR) 03/28/20 03/28/20 03/28/20 16:20 16:20 16:20 WBC RBC Hgb Hct MCV MCH MCHC RDW Std Deviation RDW Coeff of Michelle Plt Count MPV Immature Gran % (Auto) Neut % (Auto) Lymph % (Auto) [place] % (Auto) Eos % (Auto) Baso % (Auto) Neut # (Auto) Lymph # (Auto) [place] # (Auto) Eos # (Auto) Baso # (Auto) Immature Gran # (Auto) PT INR APTT PTT Ratio Sodium Potassium Chloride Carbon Dioxide Anion Gap BUN Creatinine Est Cr Clr Drug Dosing Est GFR ( Amer) Est GFR (Non-Af Amer) BUN/Creatinine Ratio Glucose Estimat Average Glucose Hemoglobin A1c Lactate 1.8 Calcium Phosphorus Magnesium Total Bilirubin Direct Bilirubin AST ALT Alkaline Phosphatase Troponin I C-Reactive Protein NT-Pro-B Natriuret Pep Total Protein Albumin Globulin Albumin/Globulin Ratio Triglycerides Cholesterol LDL Cholesterol, Calc VLDL Cholesterol, Calc HDL Cholesterol Cholesterol/HDL Ratio TSH Specimen Hemolysis Urine Color Urine Appearance Urine pH Ur Specific [place] Urine Protein Urine Glucose (UA) Urine Ketones Urine Blood Urine Nitrite Urine Bilirubin Urine Urobilinogen Ur Leukocyte Esterase Urine WBC (Auto) Urine RBC (Auto) U Hyaline Cast (Auto) U Epithel Cells (Auto) Urine Bacteria (Auto) COVID-19 Eval Order CovFluRsv at [facility] SARS-CoV-2 (PCR) NEGATIVE Influenza Type A (PCR) Negative Influenza Type B (PCR) Negative RSV (RT-PCR) Negative 03/28/20 03/29/20 03/29/20 21:41 00:00 00:09 WBC RBC Hgb Hct MCV MCH MCHC RDW Std Deviation RDW Coeff of Michelle Plt Count MPV Immature Gran % (Auto) Neut % (Auto) Lymph % (Auto) [place] % (Auto) Eos % (Auto) Baso % (Auto) Neut # (Auto) Lymph # (Auto) [place] # (Auto) Eos # (Auto) Baso # (Auto) Immature Gran # (Auto) PT INR APTT 56.4 H* PTT Ratio 2.0 Sodium Potassium Chloride Carbon Dioxide Anion Gap BUN Creatinine Est Cr Clr Drug Dosing Est GFR ( Amer) Est GFR (Non-Af Amer) BUN/Creatinine Ratio Glucose Estimat Average Glucose Hemoglobin A1c Lactate Calcium Phosphorus Magnesium Total Bilirubin Direct Bilirubin AST ALT Alkaline Phosphatase Troponin I 0.601 H* C-Reactive Protein NT-Pro-B Natriuret Pep Total Protein Albumin Globulin Albumin/Globulin Ratio Triglycerides Cholesterol LDL Cholesterol, Calc VLDL Cholesterol, Calc HDL Cholesterol Cholesterol/HDL Ratio TSH Specimen Hemolysis Urine Color Dark Yellow Urine Appearance Clear Urine pH 5.0 Ur Specific [place] 1.027 Urine Protein 1+ H Urine Glucose (UA) Negative Urine Ketones Trace H Urine Blood Negative Urine Nitrite Negative Urine Bilirubin 1+ H Urine Urobilinogen Negative Ur Leukocyte Esterase Negative Urine WBC (Auto) 1-5 Urine RBC (Auto) 0-4 U Hyaline Cast (Auto) 5-10 H U Epithel Cells (Auto) >30 H Urine Bacteria (Auto) Negative COVID-19 Eval Order SARS-CoV-2 (PCR) Influenza Type A (PCR) Influenza Type B (PCR) RSV (RT-PCR) 03/29/20 03/29/20 03/29/20 04:26 04:26 04:26 WBC 11.54 H RBC 4.61 Hgb 13.2 Hct 40.4 MCV 87.6 MCH 28.6 MCHC 32.7 RDW Std Deviation 51.7 H RDW Coeff of Michelle 16.2 H Plt Count 252 MPV 11.5 H Immature Gran % (Auto) Neut % (Auto) Lymph % (Auto) [place] % (Auto) Eos % (Auto) Baso % (Auto) Neut # (Auto) Lymph # (Auto) [place] # (Auto) Eos # (Auto) Baso # (Auto) Immature Gran # (Auto) PT INR APTT PTT Ratio Sodium 137 Potassium 3.8 Chloride 109 H Carbon Dioxide 23 Anion Gap 5.0 BUN 33 H Creatinine 1.39 H Est Cr Clr Drug Dosing 41.3 Est GFR ( Amer) 45.7 Est GFR (Non-Af Amer) 39.4 BUN/Creatinine Ratio 23.6 H Glucose 129 H Estimat Average Glucose 137 Hemoglobin A1c 6.4 H Lactate Calcium 8.3 L Phosphorus 3.5 Magnesium 2.1 Total Bilirubin 1.1 H Direct Bilirubin 0.6 H AST 20 ALT 33 Alkaline Phosphatase 121 H Troponin I 0.507 H* C-Reactive Protein NT-Pro-B Natriuret Pep Total Protein 6.4 Albumin 2.9 L Globulin 3.5 Albumin/Globulin Ratio 0.8 L Triglycerides 77 Cholesterol 88 LDL Cholesterol, Calc 48 VLDL Cholesterol, Calc 15 HDL Cholesterol 25 Cholesterol/HDL Ratio 4 TSH Specimen Hemolysis Urine Color Urine Appearance Urine pH Ur Specific [place] Urine Protein Urine Glucose (UA) Urine Ketones Urine Blood Urine Nitrite Urine Bilirubin Urine Urobilinogen Ur Leukocyte Esterase Urine WBC (Auto) Urine RBC (Auto) U Hyaline Cast (Auto) U Epithel Cells (Auto) Urine Bacteria (Auto) COVID-19 Eval Order SARS-CoV-2 (PCR) Influenza Type A (PCR) Influenza Type B (PCR) RSV (RT-PCR) 03/29/20 04:26 WBC RBC Hgb Hct MCV MCH MCHC RDW Std Deviation RDW Coeff of Michelle Plt Count MPV Immature Gran % (Auto) Neut % (Auto) Lymph % (Auto) [place] % (Auto) Eos % (Auto) Baso % (Auto) Neut # (Auto) Lymph # (Auto) [place] # (Auto) Eos # (Auto) Baso # (Auto) Immature Gran # (Auto) PT INR APTT 36.5 H PTT Ratio 1.3 Sodium Potassium Chloride Carbon Dioxide Anion Gap BUN Creatinine Est Cr Clr Drug Dosing Est GFR ( Amer) Est GFR (Non-Af Amer) BUN/Creatinine Ratio Glucose Estimat Average Glucose Hemoglobin A1c Lactate Calcium Phosphorus Magnesium Total Bilirubin Direct Bilirubin AST ALT Alkaline Phosphatase Troponin I C-Reactive Protein NT-Pro-B Natriuret Pep Total Protein Albumin Globulin Albumin/Globulin Ratio Triglycerides Cholesterol LDL Cholesterol, Calc VLDL Cholesterol, Calc HDL Cholesterol Cholesterol/HDL Ratio TSH Specimen Hemolysis Urine Color Urine Appearance Urine pH Ur Specific [place] Urine Protein Urine Glucose (UA) Urine Ketones Urine Blood Urine Nitrite Urine Bilirubin Urine Urobilinogen Ur Leukocyte Esterase Urine WBC (Auto) Urine RBC (Auto) U Hyaline Cast (Auto) U Epithel Cells (Auto) Urine Bacteria (Auto) COVID-19 Eval Order SARS-CoV-2 (PCR) Influenza Type A (PCR) Influenza Type B (PCR) RSV (RT-PCR) Diagnostic Findings Obtained at the time admission revealed mild pulmonary vascular congestion. No other acute cardiopulmonary process Echocardiogram performed today revealed moderately reduced LV systolic function with moderate to severe mitral regurgitation and moderate tricuspid regurgitation. Elevated pulmonary pressures. PG Care Time/CCT Total # of Minutes Spent Total Time Spent with Patient: Total time spent is greater than 50% in coordination of care (as documented) at patient's floor/unit and/or counseling patient: Coding Level of Care Code 89020 Initial Inpt Care Lvl 3 Diagnoses Atrial fibrillation with RVR I48.91 Cardiomyopathy I42.9 Mitral regurgitation I34.0 Elevated troponin R77.8
[2020-03-29 11:59] LABS: Partial Thromboplastin Ratio 2.8
[2020-03-29 12:02] LABS: Partial Thromboplastin Time 79.5 Seconds (21.0-31.0)
[2020-03-29] MEDS ORDERED: METOPROLOL TARTRATE 25 MG TAB PO SCH (12:30)
--- NOTE | 2020-03-29 12:55 | Electrocardiogram Report ---
Test Reason : Blood Pressure : / mmHG Vent. Rate : 148 BPM Atrial Rate : 208 BPM P-R Int : 000 ms QRS Dur : 086 ms QT Int : 310 ms P-R-T Axes : 000 063 101 degrees QTc Int : 486 ms Atrial fibrillation with rapid ventricular response Nonspecific ST abnormality Abnormal ECG No previous ECGs available Confirmed by Castillo Qureshi ([id number]) on 03/29/2020 12:54:40 PM Referred By: REFERRED SELF Confirmed By:John Qureshi
[2020-03-29] MEDS: METOPROLOL TARTRATE 25 MG TAB PO SCH ×2 (14:26→20:14)
--- NOTE | 2020-03-29 17:53 | XRay Report ---
XR chest 1V portable CLINICAL HISTORY: edema COMPARISON STUDY: Chest radiograph March 28, 2020. FINDINGS: There is no pneumothorax. Pulmonary edema, bilateral pleural effusions and bibasilar opacit ies have progressed. There is moderate cardiomegaly. IMPRESSION: Progression of pulmonary edema, bilateral pleural effusions and bibasilar opacities. ACT 112: Negative or not required by law. Electronically signed by: Stiven Gomez M.D. 03/29/2020 5:51 PM
[2020-03-29 18:57] LABS: Partial Thromboplastin Ratio 2.3
[2020-03-29 19:01] LABS: Partial Thromboplastin Time 65.4 Seconds (21.0-31.0)
[2020-03-29] MEDS: HEPARIN SODIUM/DEXTROSE 25,000 UNITS/500 ML BAG IV SCH (20:11)
[2020-03-29] MEDS: guaiFENesin 600 MG TABCR PO SCH (20:13)
[2020-03-29] MEDS: APIXABAN 5 MG TABLET PO SCH (20:13)
[2020-03-29] MEDS ORDERED: HEPARIN DRIP: STOP ORDER ONE (20:59)
--- NOTE | 2020-03-29 21:18 | Hospitalist Progress Note ---
Date of Service March 29, 2020 Assessment & Plan (1) Atrial fibrillation with RVR: -Admit to telemetry -Started on Cardizem drip in the ER, -Transitioned to beta-lynn and titrated off cardizem. -Will transiton off heparin drip and place on ELIQUIS. -2D echo ordered: showed systolic cardiomyopathy likely from uncontrolled a fib. -Troponin elevated at 0.856 on admission, -Patient is significantly volume overloaded at time of admission, 3+ pitting with numerous venous stasis ulcers over lower extremities which are weeping and saturating her sheets, pitting edema over the abdomen, encourage elevation of the legs -Lasix 40 mg IV BID with first dose now -Fluid restriction for now of 1500ml daily, pt had been drinking lots of fluids to help with reducing amount of edema in her legs, discussion (2) SHALOM (acute kidney injury): -Creatinine remains elevated (3) Tobacco use: -Discussion regarding cessation at bedside held, patient would like to quit, nicotine patch placed on the patient's arm while at bedside. -Smokes 10 cigarettes/day, discussed attempting to reduce this by few cigarettes per week to help her quit (4) Venous ulcers of both lower extremities: -Developed over the past month, will order IV clindamycin to cover for any infectious source in the lower legs although this appears to be due to severe hypervolemia -Wound consulted -Bacitracin ointment once wounds stop weeping so much serosanguineous fluid -Wound culture of ulceration has been sent to the lab (5) Constipation: -Last bowel movement was 3 days ago, will add on MiraLAX and Dulcolax p.o. now (6) Edema: -Lower extremities and abdomen -Secondary to A. fib with RVR, await echo to determine if any systolic or diastolic dysfunction -Total bilirubin = 1.2, alk phos slightly elevated at 141-sister mention to ER attending that alcohol use was significant in the past, patient denies any alcohol use currently, concern for possible history of liver involvement? Consider further work-up for cirrhosis -Follow a.m. LFTs DVT PPx: Heparin drip CODE: Full code (7) Acute systolic ACC/AHA stage C congestive heart failure: will continue Lasix IV BID. Urine output has been low, will place on jean and closely monitor output Admission and Anticipated Discharge Date Admission Date: March 28, 2020 Subjective 64 yo female reports feeling SOB at rest. She is on room air though. D/W nurse, patient has a low urine output at the moment. Will place jean cathteter Review of Systems Review of Systems: All systems reviewed & are unremarkable except as noted in HPI & below Physical Exam Physical Exam: General: awake, alert, no apparent distress Head: Normocephalic, atraumatic ENT: PERRL, EOMI, no pharyngeal exudate, mucous membranes moist Chest: On room air with O2 sats at 92%, Bilateral rales in lower extremities. Cardiac: HR is 80 at bedside, no murmur, no JVD, normal peripheral pulses, good capillary refill Abdominal: NABS x 4 quadrants, soft, + abdominally distended, + edematous with pitting in abdomen throughout, nontender to palpation, no rebound or guarding Extremities: 3+ pitting edema up to hips, dull erythema BLE, numerous 1 cm diameter ulcerations with serosanguineous drainage over BLE, calfs nontender to palpation Psych: Normal mood and affect, + anxious Neuro: AAO x 3, strength intact bilaterally and rated 5/5, no motor deficits, speech is clear, no peripheral sensory deficits Results & Data Results & Data ([facility]) Vital Signs (Past 12 Hours) Vital Signs Temp Pulse Resp BP Pulse Ox Pulse Ox 03/29/20 19:10 36.3 C L 82 24 106/74 94 03/29/20 15:30 103/71 03/29/20 15:24 36.3 C L 81 20 97/63 L 95 03/29/20 12:02 36.6 C 72 18 126/64 99 03/29/20 10:21 90 PG Care Time/CCT Total # of Minutes Spent Total Time Spent with Patient: Total time spent is greater than 50% in coordination of care (as documented) at patient's floor/unit and/or counseling patient: Coding Level of Care Code 53993 Subseq Hosp Care Lvl 3 Diagnoses Atrial fibrillation with RVR I48.91 SHALOM (acute kidney injury) N17.9 Tobacco use Z72.0 Venous ulcers of both lower extremities I83.019; I83.029; L97.919; L97.929 Constipation K59.00 Edema R60.9 Edema type: unspecified Acute systolic ACC/AHA stage C congestive heart failure I50.21 Time Spent (min) 35 (1) Edema Edema type: unspecified Qualified Code(s): R60.9 - Edema, unspecified
[2020-03-29] MEDS ORDERED: FUROSEMIDE 40 MG in SYRINGE 0 ML IV ONE (23:09)
--- NOTE | 2020-03-29 23:26 | Communication Note ---
Date of Service: March 29, 2020 Paged by nursing that patient only had 3 ml UOP from 3p -11 pm and was bladder scanned for 501 cc. Nursing unable to place new jean due to patient not to lerating flat positioning. Assessed at bedside. Pt fairly anxious, saturating well on room air however feels better having 2L NC on. regular rate, afib. Diffuse rales bilaterally to midlung, 3+ pitting edema to thighs bilaterally. Abdomen distended and tight, nontender. suspect fluid accumulation in abdominal cavity as well. 40 mg IV lasix x1 ordered. will sitka back for f/u of sx later. discussed using purwick catheter / patient getting up to restroom as comfortable.
[2020-03-29] MEDS ORDERED: FUROSEMIDE 40 MG/4 ML VIAL IV ONE (23:30)
[2020-03-30] MEDS ORDERED: LORazepam 0.25 MG/0.5 ML VIAL IV STA (00:39)
[2020-03-30] MEDS: CLINDAMYCIN 600 MG in DEXTROSE 5% 50 ML IV SCH ×2 (02:46→10:52)
[2020-03-30 07:29] LABS: Hematocrit (blood only) 40.2 % (37-47); Hemoglobin 13.3 g/dL (12.0-16.0); Mean Corpuscular Hemoglobin 28.9 pg (25-34); Mean Corpuscular Hgb Conc 33.1 g/dL (32-36); Mean Corpuscular Volume 87.2 fL (80-100); Mean Platelet Volume 12.2 fL (7.4-10.4); Platelet Count 270 K/uL (130-400); RDW Coefficient of Variation 16.3 % (11.5-14.5); RDW Standard Deviation 51.9 fL (36.4-46.3); Red Blood Count 4.61 M/uL (4.2-5.4); White Blood Count 12.21 K/uL (4.8-10.8)
[2020-03-30 08:01] LABS: Albumin Level 2.7 gm/dl (3.4-5.0); BUN Creatinine Ratio 20.5 (10-20); Calcium 8.4 mg/dl (8.5-10.1); Creatinine Clr Calc Pharmacy 27.9 ml/min; Est GFR (African American) 28.4; Est GFR (Non-African American) 24.5; Potassium 4.1 mmol/L (3.5-5.1)
[2020-03-30 08:03] LABS: Albumin Globulin Ratio 0.8 (0.9-2); Bilirubin,Total 1.1 mg/dl (0.2-1); Globulin 3.4 gm/dl (2.5-4.0); Total Protein 6.1 gm/dl (6.4-8.2)
--- NOTE | 2020-03-30 08:08 | XRay Report ---
XR chest 1V portable CLINICAL HISTORY: fluid overload COMPARISON STUDY: 03/29/2020 FINDINGS: The cardiac silhouette remains enlarged and globular. There are bilateral pleural effusions with associated basilar airspace opacities. There is slight improvement in the previously identified central pulmonary vascular congestion[ IMPRESSION: Persistent cardiomegaly and bilateral pleural effusions. ACT 112: Negative or not required by law. Electronically signed by: Nick Pratt M.D. 03/30/2020 8:07 AM
--- NOTE | 2020-03-30 08:13 | CT Scan Report ---
CT head/brain wo con CLINICAL HISTORY: stroke alert STROKE LIKE SYMPTOMS COMPARISON STUDY: No previous studies for comparison. TECHNIQUE: Axial CT of the brain is performed from the vertex to the skull base. IV contrast was not administered for this examination. A dose lowering technique was utilized adhering to the principles of ALARA. CT DOSE: 614.27 mGy.cm FINDINGS: No intra or extra-axial mass lesions are visualized. There is equivocal slight loss and sims-white di fferentiation within the left frontal vertex. An MRI might be considered in follow-up to exclude acut e stroke. There is no acute hemorrhage. There is no midline shift. There are patchy white matter hypodensities likely on a small vessel basis. 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 There is no evidence of pathologic ventricular dilatation. There is no evidence of acute sinusitis there are scattered scalp nodules likely representing sebaceo us cysts IMPRESSION: 1. No acute hemorrhage 2. Equivocal subtle loss and sims-white differentiation within the left frontal vertex. A small acute /subacute infarct cannot be excluded 3. White matter disease with scattered lacunar infarcts ACT 112: Negative or not required by law. Electronically signed by: Nick Pratt M.D. 03/30/2020 8:12 AM
[2020-03-30] MEDS: APIXABAN 5 MG TABLET PO SCH ×2 (08:45→20:30)
[2020-03-30] MEDS: POTASSIUM CHLORIDE CRTAB 20 MEQ TABCR PO SCH (08:45)
[2020-03-30] MEDS: FUROSEMIDE 40 MG in SYRINGE 0 ML IV SCH (08:45)
[2020-03-30] MEDS: METOPROLOL TARTRATE 25 MG TAB PO SCH ×3 (08:45→20:30)
[2020-03-30] MEDS: BACITRACIN OINT 15 GM TUBE EXT SCH ×2 (08:46→20:30)
[2020-03-30] MEDS: NICOTINE 21 MG/24 HR TDSY TD SCH (08:46)
[2020-03-30] MEDS: POLYETHYLENE (MIRALAX) 17 GM PACK PO SCH (08:48)
[2020-03-30] MEDS: bisacodyL 5 MG TABEC PO SCH (08:48)
[2020-03-30] MEDS ORDERED: PIPERACILL/TAZOBAC CONSULT ACTIVE PRN (13:33)
[2020-03-30] MEDS ORDERED: PIPERACILLIN/TAZOBACTAM 4.5 GM in DEXTROSE 5% 100 ML IV ONE (14:00)
[2020-03-30] MEDS: cefTRIAXone SODIUM 2,000 MG in DEXTROSE 5% 50 ML IV SCH (14:27)
[2020-03-30 16:12] LABS: BUN Creatinine Ratio 21.1 (10-20); Calcium 8.4 mg/dl (8.5-10.1); Est GFR (African American) 27.3; Est GFR (Non-African American) 23.5; Potassium 4.5 mmol/L (3.5-5.1)
--- NOTE | 2020-03-30 20:06 | Hospitalist Progress Note ---
Date of Service March 30, 2020 Assessment & Plan (1) Confusion: Resolved. Stroke ruled out/ Stroke alert was called, CT head was negative. D/W [facility]. No other workup required. NIH scale negative. Patient able to performing writing, simple math, and identify objects. will monitor. (2) Atrial fibrillation with RVR: -Admit to telemetry -Started on Cardizem drip in the ER, -Transitioned to beta-lynn and titrated off cardizem. -Will transiton off heparin drip and place on ELIQUIS. will continue eliquis -2D echo ordered: showed systolic cardiomyopathy likely from uncontrolled a fib. -Troponin elevated at 0.856 on admission, -Patient remains volume overloaded, will continue with intermittent doses of furosemide. Jean cathter has been placed. -Fluid restriction for now of 1500ml daily, updated family (3) SHALOM (acute kidney injury): -Creatinine remains elevated (4) Tobacco use: -Discussion regarding cessation at bedside held, patient would like to quit, nicotine patch placed on the patient's arm while at bedside. -Smokes 10 cigarettes/day, discussed attempting to reduce this by few cigarettes per week to help her quit (5) Venous ulcers of both lower extremities: -Developed over the past month, will order IV clindamycin to cover for any infectious source in the lower legs although this appears to be due to severe hypervolemia -Wound consulted -Bacitracin ointment once wounds stop weeping so much serosanguineous fluid -Wound culture of ulceration has been sent to the lab preliminary cultures are back. Placed on ceftriaxone. (6) Constipation: -Last bowel movement was 3 days ago, will add on MiraLAX and Dulcolax p.o. now (7) Edema: -Lower extremities and abdomen -Secondary to A. fib with RVR, await echo to determine if any systolic or diastolic dysfunction -Total bilirubin = 1.2, alk phos slightly elevated at 141-sister mention to ER attending that alcohol use was significant in the past, patient denies any alcohol use currently, concern for possible history of liver involvement? Cons ider further work-up for cirrhosis -Follow a.m. LFTs DVT PPx: Heparin drip CODE: Full code (8) Acute systolic ACC/AHA stage C congestive heart failure: will continue Lasix IV BID. Urine output has been low, will place on jean and closely monitor output continue to diurese. Admission and Anticipated Discharge Date Admission Date: March 28, 2020 Subjective Was called to bedside for a stroke alert near change of shift. Patient was not moving her right side and appeared confused. Patient went down for a CT scan wand this was negative. Patient returned to room, and was awake and following commands. NIH scale was negative. D/W Neurologist cannoneer from [facility]. Patient improved and did not require any further imaging. Given history of a fib, may be radha thrombus or metabolic encephalopathy. Review of Systems Review of Systems: All systems reviewed & are unremarkable except as noted in HPI & below Physical Exam Physical Exam: General: awake, alert, no apparent distress Head: Normocephalic, atraumatic ENT: PERRL, EOMI, no pharyngeal exudate, mucous membranes moist Chest: On room air with O2 sats at 92%, Bilateral rales in lower extremities. Cardiac: HR is 80 at bedside, no murmur, no JVD, normal peripheral pulses, good capillary refill Abdominal: NABS x 4 quadrants, soft, nondistended, +decreased pitting edema., nontender to palpation, no rebound or guarding Extremities: 3+ pitting edema up to hips, dull erythema BLE, numerous 1 cm leni meter ulcerations with serosanguineous drainage over BLE, calfs nontender to palpation Psych: Normal mood and affect, + anxious Neuro: AAO x 3, strength intact bilaterally and rated 5/5, no motor deficits, speech is clear, no peripheral sensory deficits Results & Data Results & Data ([facility]) Vital Signs (Past 12 Hours) Vital Signs Temp Pulse Resp BP Pulse Ox 03/30/20 19:45 36.5 C 95 H 18 93/64 L 93 03/30/20 16:00 36.4 C L 90 20 115/78 95 03/30/20 12:00 36.4 C L 89 20 100/64 92 03/30/20 08:51 36.4 C L 92 H 22 112/77 96 PG Care Time/CCT Total # of Minutes Spent Total Time Spent: 70 Total Time Spent with Patient: Total time spent is greater than 50% in coordination of care (as documented) at patient's floor/unit and/or counseling patient: Prolonged Care Time Prolonged Care Time: Yes Total Prolonged Care Time: 75 7:15 to 8:00 9:10 to 9:20 12:00 to 12:10 15:00 to 15:10 Coding Level of Care Code 00246 Subseq Hosp Care Lvl 3 Diagnoses Confusion R41.0 Atrial fibrillation with RVR I48.91 SHALOM (acute kidney injury) N17.9 Tobacco use Z72.0 Venous ulcers of both lower extremities I83.019; I83.029; L97.919; L97.929 Constipation K59.00 Edema R60.9 Edema type: unspecified Acute systolic ACC/AHA stage C congestive heart failure I50.21 Additional Codes Prolonged Care Time - Prolonged Care Time: Yes ([id number]) (1) Edema Edema type: unspecified Qualified Code(s): R60.9 - Edema, unspecified
[2020-03-30] MEDS: guaiFENesin 600 MG TABCR PO SCH (20:30)
[2020-03-30] MEDS ORDERED: FUROSEMIDE 40 MG in SYRINGE 0 ML IV ONE (23:37)
[2020-03-30] MEDS ORDERED: MoRPHine SULFATE 2 MG/ML CARP IV STA (23:37)
[2020-03-30] MEDS ORDERED: FUROSEMIDE 40 MG/4 ML VIAL IV ONE (23:45)
[2020-03-30] MEDS: ALBUMIN 25% 12.5 GM/50 ML VIAL IV SCH (23:48)
[2020-03-31] MEDS: ALBUMIN 25% 12.5 GM/50 ML VIAL IV SCH ×3 (00:20→02:27)
[2020-03-31 06:08] LABS: Hematocrit (blood only) 39.8 % (37-47); Mean Corpuscular Hemoglobin 28.5 pg (25-34); Mean Corpuscular Hgb Conc 32.7 g/dL (32-36); Mean Corpuscular Volume 87.3 fL (80-100); Platelet Count 251 K/uL (130-400); RDW Coefficient of Variation 16.4 % (11.5-14.5); RDW Standard Deviation 51.8 fL (36.4-46.3); Red Blood Count 4.56 M/uL (4.2-5.4); White Blood Count 11.15 K/uL (4.8-10.8)
[2020-03-31 06:47] LABS: Albumin Globulin Ratio 1.1 (0.9-2); Albumin Level 3.5 gm/dl (3.4-5.0); BUN Creatinine Ratio 22.7 (10-20); Calcium 8.7 mg/dl (8.5-10.1); Creatinine Clr Calc Pharmacy 27.1 ml/min; Est GFR (African American) 26.6; Globulin 3.1 gm/dl (2.5-4.0); Potassium 4.2 mmol/L (3.5-5.1); Total Protein 6.6 gm/dl (6.4-8.2)
[2020-03-31 06:49] LABS: Bilirubin,Total 0.8 mg/dl (0.2-1)
[2020-03-31] MEDS: POTASSIUM CHLORIDE CRTAB 20 MEQ TABCR PO SCH (08:17)
[2020-03-31] MEDS: NICOTINE 21 MG/24 HR TDSY TD SCH (08:17)
[2020-03-31] MEDS: METOPROLOL TARTRATE 25 MG TAB PO SCH ×3 (08:17→21:00)
[2020-03-31] MEDS: APIXABAN 5 MG TABLET PO SCH ×2 (08:17→21:01)
[2020-03-31] MEDS: BACITRACIN OINT 15 GM TUBE EXT SCH ×2 (08:18→21:00)
[2020-03-31] MEDS: bisacodyL 5 MG TABEC PO SCH (08:18)
[2020-03-31] MEDS: POLYETHYLENE (MIRALAX) 17 GM PACK PO SCH (08:18)
[2020-03-31] MEDS ORDERED: FUROSEMIDE 40 MG in SYRINGE 0 ML IV ONE (11:10)
[2020-03-31] MEDS: cefTRIAXone SODIUM 2,000 MG in DEXTROSE 5% 50 ML IV SCH (14:21)
--- NOTE | 2020-03-31 20:31 | Hospitalist Progress Note ---
Date of Service March 31, 2020 Assessment & Plan (1) Atrial fibrillation with RVR: -Admit to telemetry -Started on Cardizem drip in the ER, -Transitioned to beta-lynn and titrated off cardizem. -Now off heparin drip and place on ELIQUIS. will continue eliquis -2D echo ordered: showed systolic cardiomyopathy likely from uncontrolled a fib. -Troponin elevated at 0.856 on admission, -Patient remains volume overloaded, will continue with intermittent doses of furosemide. Jean catheter has been placed. -Fluid restriction for now of 1500ml daily. updated family on 03/30. On 03/31, patient is having more urine output. Overnight resident ordered IV albumin, will hold further albumin infusions as not indicated in this case. (2) Acute systolic ACC/AHA stage C congestive heart failure: will continue Lasix intermittently. Urine output has been low, will place on jean and closely monitor output continue to diurese. will have standing dailuy order for 04/01 (3) Confusion: Resolved. Stroke ruled out/ Stroke alert was called on 03/30 AM. The confusion was short lived. CT head was negative. D/W [facility]. No other workup required. NIH scale negative. Patient able to performing writing, simple math, and identify objects. will monitor. (4) SHALOM (acute kidney injury): -Creatinine remains elevated but stable. (5) Tobacco use: -Discussion regarding cessation at bedside held, patient would like to quit, nicotine patch placed on the patient's arm while at bedside. -Smokes 10 cigarettes/day, discussed attempting to reduce this by few cigarettes per week to help her quit (6) Venous ulcers of both lower extremities: -Developed over the past month, will order IV clindamycin to cover for any infectious source in the lower legs although this appears to be due to severe hypervolemia -Wound consulted -Bacitracin ointment once wounds stop weeping so much serosanguineous fluid -Wound culture of ulceration has been sent to the lab preliminary cultures are back. Placed on ceftriaxone, likely will recommend a 5-7 day course. (7) Constipation: -Last bowel movement was 3 days ago, will add on MiraLAX and Dulcolax p.o. now (8) Edema: -Lower extremities and abdomen -Secondary to A. fib with RVR, await echo to determine if any systolic or diastolic dysfunction -Total bilirubin = 1.2, alk phos slightly elevated at 141-sister mention to ER attending that alcohol use was significant in the past, patient denies any alcohol use currently, concern for possible history of liver involvement? Consider further work-up for cirrhosis -Follow a.m. LFTs DVT PPx: Kellyquis CODE: Full code Admission and Anticipated Discharge Date Admission Date: March 28, 2020 Subjective Patient appears more comfortable. She has less SOB today. Nurse reports she has more urine output. Review of Systems Review of Systems: All systems reviewed & are unremarkable except as noted in HPI & below Physical Exam Physical Exam: General: awake, alert, no apparent distress Head: Normocephalic, atraumatic ENT: PERRL, EOMI, no pharyngeal exudate, mucous membranes moist Chest: On room air with O2 sats at 92%, Bilateral rales in lower extremities. Cardiac: HR is 80 at bedside, no murmur, no JVD, normal peripheral pulses, good capillary refill Abdominal: NABS x 4 quadrants, soft, nondistended, +decreased pitting edema., nontender to palpation, no rebound or guarding Extremities: 3+ pitting edema up to hips, edema is less pronounced today, dull erythema BLE, numerous 1 cm diameter ulcerations with serosanguineous drainage over BLE, calfs nontender to palpation Psych: Normal mood and affect, + anxious Neuro: AAO x 3, strength intact bilaterally and rated 5/5, no motor deficits, speech is clear, no peripheral sensory deficits Results & Data Results & Data ([facility]) Vital Signs (Past 12 Hours) Vital Signs Temp Pulse Resp BP Pulse Ox 03/31/20 20:13 36.7 C 106 H 18 121/69 94 03/31/20 16:00 37.1 C 105 H 20 107/67 95 03/31/20 12:00 36.4 C L 103 H 18 108/70 93 PG Care Time/CCT Total # of Minutes Spent Total Time Spent with Patient: Total time spent is greater than 50% in coordination of care (as documented) at patient's floor/unit and/or counseling patient: Coding Level of Care Code 26461 Subseq Hosp Care Lvl 3 Diagnoses Atrial fibrillation with RVR I48.91 Acute systolic ACC/AHA stage C congestive heart failure I50.21 Confusion R41.0 SHALOM (acute kidney injury) N17.9 Tobacco use Z72.0 Venous ulcers of both lower extremities I83.019; I83.029; L97.919; L97.929 Constipation K59.00 Edema R60.9 Edema type: unspecified Time Spent (min) 35 (1) Edema Edema type: unspecified Qualified Code(s): R60.9 - Edema, unspecified
[2020-03-31] MEDS: guaiFENesin 600 MG TABCR PO SCH (21:00)
[2020-04-01 07:15] LABS: Creatinine Clr Calc Pharmacy 32.7 ml/min; Est GFR (African American) 34.1; Est GFR (Non-African American) 29.4
[2020-04-01 07:31] LABS: Potassium 4.2 mmol/L (3.5-5.1)
[2020-04-01] MEDS: BACITRACIN OINT 15 GM TUBE EXT SCH ×2 (08:36→20:24)
[2020-04-01] MEDS: METOPROLOL TARTRATE 25 MG TAB PO SCH ×3 (08:37→19:08)
[2020-04-01] MEDS: APIXABAN 5 MG TABLET PO SCH ×2 (08:37→20:25)
[2020-04-01] MEDS: POTASSIUM CHLORIDE CRTAB 20 MEQ TABCR PO SCH (08:38)
[2020-04-01] MEDS: NICOTINE 21 MG/24 HR TDSY TD SCH (08:39)
[2020-04-01] MEDS: FUROSEMIDE 40 MG in SYRINGE 0 ML IV SCH (09:13)
[2020-04-01] MEDS: bisacodyL 5 MG TABEC PO SCH (09:13)
--- NOTE | 2020-04-01 12:54 | Cardiology Progress Note ---
Date of Service April 01, 2020 Assessment & Plan (1) Atrial fibrillation with RVR: The patient does not appear to have symptoms associated with her atrial fibrillation. No sense of palpitations. Rate is not adequately controlled I will increase her metoprolol. Continue apixiban (2) Cardiomyopathy: She has significantly reduced LV systolic function which likely accounts for some of her peripheral edema. She effected a good diuresis yesterday. No dyspnea. Will continue current dose of lasix and monitor her renal function. (3) Mitral regurgitation: Moderate to severe. Eccentric: (4) Elevated troponin: Admission and Anticipated Discharge Date Admission Date: March 28, 2020 Subjective She claims to be feeling "much better". I think this refers to her edema and overall energy. She was happy that she has been getting better sleep. No dyspnea. SOme ambulation with a walker. NO chest pain or palpitations Review of Systems Review of Systems: Per HPI Physical Exam Physical Exam: She is alert and oriented x3. Mood affect appear normal. She answered all questions appropriately. HEENT: Sclerae are anicteric. Pupils are equal and reactive to light and accommodation. Extraocular movements were intact. Neuro: Cranial nerves intact Lungs: Coarse upper respiratory sounds with expiratory rhonchi. Normal respiratory effort. No wheezing. Cardiac: The rhythm was irregular. S1 and S2 were normal. Holosystolic murmur variable intensity. The PMI was not markedly displaced on palpation. Abdomen: The abdomen was soft and nontender. Extremities: Patient has bilateral radial pulses that are equal in intensity. There is no evidence cyanosis or clubbing. Moderate lower extremity edema with excoriations. Mild erythema. Skin: There are no rashes noted on examination today. Results & Data ([facility]) Vital Signs (Past 12 Hours) Vital Signs Temp Pulse Pulse Resp BP Pulse Ox Pulse Ox 04/01/20 10:52 36.5 C 114 H 20 124/80 97 04/01/20 10:37 96 04/01/20 08:00 112 H 95 04/01/20 07:14 36.4 C L 109 H 18 125/78 95 04/01/20 03:23 36.5 C 105 H 19 135/78 95 Laboratory Results Abnormal Lab Results 04/01/20 04/01/20 06:09 06:13 Sodium 137 Potassium 4.2 Chloride 108 H Carbon Dioxide 23 BUN 50 H Creatinine 1.77 H D Est Cr Clr Drug Dosing 32.7 Est GFR ( Amer) 34.1 Est GFR (Non-Af Amer) 29.4 PG Care Time/CCT Total # of Minutes Spent Total Time Spent with Patient: Total time spent is greater than 50% in coordination of care (as documented) at patient's floor/unit and/or counseling patient: Coding Level of Care Code 43778 Subseq Hosp Care Lvl 2 Diagnoses Atrial fibrillation with RVR I48.91 Cardiomyopathy I42.9 Mitral regurgitation I34.0 Elevated troponin R77.8
[2020-04-01] MEDS: POLYETHYLENE (MIRALAX) 17 GM PACK PO SCH (13:31)
[2020-04-01] MEDS: cefTRIAXone SODIUM 2,000 MG in DEXTROSE 5% 50 ML IV SCH (14:25)
--- NOTE | 2020-04-01 15:54 | Hospitalist Progress Note ---
Date of Service April 01, 2020 Assessment & Plan (1) Atrial fibrillation with RVR: Started on Cardizem drip in the ER. Troponin was elevated at 0.856 on admission. - Transitioned to beta-lynn and titrated off Cardizem. - Continue Eliquis. - 2D echo ordered - showed systolic cardiomyopathy likely from uncontrolled afib. - Will increase metoprolol to 25 mg Q6h for now. (2) Acute systolic ACC/AHA stage C congestive heart failure: EF was 35 - 40% on 03/29/2020. Thought to be tachycardia-induced. - Continue Lasix 40 mg IV daily - Monitor weights and I&Os - Net negative 1.6L. Weight down slightly, but also a bed weight. Will ask for standing weights. (3) Confusion: Stroke alert was called on 03/30 AM. The confusion was short lived. CT head was negative. D/w [facility] at the time. No other workup required. - Resolved. (4) SHALOM (acute kidney injury): Baseline Cr. may be as high as 1.3 - 1.5, but not entirely clear as she has no prior work-up in our system. - Creatinine at 1.8 today, but coming down with diuresis. - Monitor (5) Tobacco use: Discussion regarding cessation at bedside held, patient would like to quit, nicotine patch placed on the patient's arm while at bedside. - Smokes 10 cigarettes/day, discussed attempting to reduce this by few cigarettes per week to help her quit. (6) Venous ulcers of both lower extremities: Developed over the past month; likely due to hypervolemia. - Wound consulted - Wound culture of ulceration has been sent to the lab -> Serratia liquefaciens & MSSA. - Continue ceftriaxone (End date: 04/05/2020) (7) Constipation: Initially with constipation on admission. - Now with diarrhea after bowel regimen. - Stop bowel regimen today. (8) DVT prophylaxis: Eliquis for afib Admission and Anticipated Discharge Date Admission Date: March 28, 2020 Subjective Feeling some better today. No major changes overall. Reports no fevers/chills, chest pain, shortness of breath, abdominal pain, nausea, or vomiting. Physical Exam Constitutional: WD/WN, vitals as above Eyes: EOM intact bilaterally; no conjunctival abnormality ENMT: external ear and nose normal, oropharynx normal Neck: trachea midline, no thyromegaly normal visual inspection Respiratory: normal respiratory effort, lungs clear to auscultation no respiratory distress Cardiovascular: Rate/Rhythm: + tachycardic and + irregularly irregular Heart Sounds: normal S1 and normal S2 Extremities: + edema Gastrointestinal (Abdomen): Inspection/Auscultation: abdomen normal to inspection; abdomen not distended Musculoskeletal: no cyanosis or clubbing, extremities motor strength 5/5 Skin: no rashes, warm and dry Neurologic: moves all extremities and awake Psychiatric: Orientation: alert, oriented to person and cooperative Results & Data Results & Data ([facility]) Vital Signs (Past 12 Hours) Vital Signs Temp Pulse Pulse Resp BP Pulse Ox Pulse Ox 04/01/20 10:52 36.5 C 114 H 20 124/80 97 04/01/20 10:37 96 04/01/20 08:00 112 H 95 04/01/20 07:14 36.4 C L 109 H 18 125/78 95 PG Care Time/CCT Total # of Minutes Spent Total Time Spent with Patient: Total time spent is greater than 50% in coordination of care (as documented) at patient's floor/unit and/or counseling patient: Coding Level of Care Code 39206 Subseq Hosp Care Lvl 2 Diagnoses Atrial fibrillation with RVR I48.91 Acute systolic ACC/AHA stage C congestive heart failure I50.21 Confusion R41.0 SHALOM (acute kidney injury) N17.9 Tobacco use Z72.0 Venous ulcers of both lower extremities I83.019; I83.029; L97.919; L97.929 Constipation K59.00 DVT prophylaxis Z29.9
[2020-04-01] MEDS: guaiFENesin 600 MG TABCR PO SCH (20:25)
[2020-04-02] MEDS: METOPROLOL TARTRATE 25 MG TAB PO SCH ×4 (00:13→17:01)
[2020-04-02 07:01] LABS: BUN Creatinine Ratio 34.4 (10-20); Calcium 8.4 mg/dl (8.5-10.1); Creatinine Clr Calc Pharmacy 36.9 ml/min; Est GFR (Non-African American) 34.5; Potassium 4.2 mmol/L (3.5-5.1)
[2020-04-02 07:04] LABS: Albumin Globulin Ratio 0.9 (0.9-2); Bilirubin,Total 0.6 mg/dl (0.2-1); Globulin 3.5 gm/dl (2.5-4.0); Phosphorus 3.2 mg/dl (2.5-4.9); Total Protein 6.5 gm/dl (6.4-8.2)
[2020-04-02 08:04] LABS: Hematocrit (blood only) 38.5 % (37-47); Mean Corpuscular Hemoglobin 29.1 pg (25-34); Mean Corpuscular Hgb Conc 33.8 g/dL (32-36); Mean Corpuscular Volume 86.3 fL (80-100); Mean Platelet Volume 11.1 fL (7.4-10.4); Platelet Count 238 K/uL (130-400); RDW Coefficient of Variation 16.4 % (11.5-14.5); Red Blood Count 4.46 M/uL (4.2-5.4); White Blood Count 10.23 K/uL (4.8-10.8)
[2020-04-02] MEDS: FUROSEMIDE 40 MG in SYRINGE 0 ML IV SCH (08:48)
[2020-04-02] MEDS: APIXABAN 5 MG TABLET PO SCH ×2 (08:48→20:08)
[2020-04-02] MEDS: POTASSIUM CHLORIDE CRTAB 20 MEQ TABCR PO SCH (08:48)
[2020-04-02] MEDS: BACITRACIN OINT 15 GM TUBE EXT SCH ×2 (08:48→20:08)
[2020-04-02] MEDS: NICOTINE 21 MG/24 HR TDSY TD SCH (08:49)
--- NOTE | 2020-04-02 11:23 | Cardiology Progress Note ---
Date of Service April 02, 2020 Assessment & Plan (1) Atrial fibrillation with RVR: The patient does not appear to have symptoms associated with her atrial fibrillation. No sense of palpitations. she continues to have high heart rates. No significant improvement with identification of her metoprolol. She seemed to do fairly well with diltiazem earlier in her admission. I think we will add some calcium channel lynn in the hopes of controlling her rate. Her cardiomyopathy is likely related to high rates. Continue apixaban. (2) Cardiomyopathy: She has significantly reduced LV systolic function which likely accounts for some of her peripheral edema. She continues to have a good diuresis. I would continue her current dose of diuretic. (3) Mitral regurgitation: Moderate to severe. Eccentric: (4) Elevated troponin: No symptoms of chest pain or evidence of an acute coronary syndrome. Admission and Anticipated Discharge Date Admission Date: March 28, 2020 Subjective this morning the patient claims to feeling "great". She was ambulatory to the bathroom and back. She reports feeling somewhat weak, but did not report dizziness or lightheadedness. No breathing difficulty. No chest pain. No sense of palpitation. Review of Systems Review of Systems: Per HPI Physical Exam Physical Exam: She is alert and oriented x3. Mood affect appear normal. She answered all questions appropriately. HEENT: Sclerae are anicteric. Pupils are equal and reactive to light and accommodation. Extraocular movements were intact. Neuro: Cranial nerves intact Lungs: Coarse upper respiratory sounds with expiratory rhonchi. Normal resp iratory effort. No wheezing. Cardiac: The rhythm was irregular. S1 and S2 were normal. Holosystolic murmur variable intensity. The PMI was not markedly displaced on palpation. Abdomen: The abdomen was soft and nontender. Extremities: Patient has bilateral radial pulses that are equal in intensity. There is no evidence cyanosis or clubbing. Moderate lower extremity edema with excoriations. Mild erythema. Skin: There are no rashes noted on examination today. Results & Data ([facility]) Vital Signs (Past 12 Hours) Vital Signs Temp Pulse Pulse Resp BP Pulse Ox Pulse Ox 04/02/20 08:06 36.7 C 116 H 18 154/90 H 92 04/02/20 03:53 37.0 C 124 H 17 136/89 91 04/02/20 00:00 118 H 95 Laboratory Results Abnormal Lab Results 04/02/20 04/02/20 05:43 05:47 WBC 10.23 RBC 4.46 Hgb 13.0 Hct 38.5 MCV 86.3 MCH 29.1 MCHC 33.8 RDW Std Deviation 52.0 H RDW Coeff of Michelle 16.4 H Plt Count 238 MPV 11.1 H Sodium 139 Potassium 4.2 Chloride 108 H Carbon Dioxide 24 Anion Gap 7.0 BUN 53 H Creatinine 1.55 H Est Cr Clr Drug Dosing 36.9 Est GFR ( Amer) 40.0 Est GFR (Non-Af Amer) 34.5 BUN/Creatinine Ratio 34.4 H Glucose 99 Calcium 8.4 L Phosphorus 3.2 Magnesium 2.0 Total Bilirubin 0.6 AST 32 ALT 71 Alkaline Phosphatase 94 Total Protein 6.5 Albumin 3.0 L Globulin 3.5 Albumin/Globulin Ratio 0.9 PG Care Time/CCT Total # of Minutes Spent Total Time Spent with Patient: Total time spent is greater than 50% in coordination of care (as documented) at patient's floor/unit and/or counseling patient: Coding Level of Care Code 63548 Subseq Hosp Care Lvl 2 Diagnoses Atrial fibrillation with RVR I48.91 Cardiomyopathy I42.9 Mitral regurgitation I34.0 Elevated troponin R77.8
--- NOTE | 2020-04-02 13:14 | Hospitalist Progress Note ---
Date of Service April 02, 2020 Assessment & Plan (1) Atrial fibrillation with RVR: Started on Cardizem drip in the ER. Troponin was elevated at 0.856 on admission. - Transitioned to beta-lynn and titrated off Cardizem. - Continue Eliquis. - 2D echo ordered - showed systolic cardiomyopathy likely from uncontrolled afib. - Increased metoprolol to 25 mg PO Q6h on 04/01. Added low-dose diltiazem on 04/02 for continued HR in the 100 - 115. (2) Acute systolic ACC/AHA stage C congestive heart failure: EF was 35 - 40% on 03/29/2020. Thought to be tachycardia-induced. - Continue Lasix 40 mg IV daily - Monitor weights and I&Os - Net negative 1.5L & weight is down to 78 kg today. (3) Confusion: Stroke alert was called on 03/30 AM. The confusion was short lived. CT head was negative. D/w [facility] at the time. No other workup required. - Resolved. (4) SHALOM (acute kidney injury): Baseline Cr. may be as high as 1.3 - 1.5, but not entirely clear as she has no prior work-up in our system. - Creatinine at 1.55 today, but coming down with diuresis. BUN creeping higher; may not want to go for much longer. - Monitor (5) Tobacco use: Discussion regarding cessation at bedside held, patient would like to quit, nicotine patch placed on the patient's arm while at bedside. - Smokes 10 cigarettes/day, discussed attempting to reduce this by few cigarettes per week to help her quit. (6) Venous ulcers of both lower extremities: Developed over the past month; likely due to hypervolemia. - Wound consulted - Wound culture of ulceration has been sent to the lab -> Serratia liquefaciens & MSSA. - Continue ceftriaxone (End date: 04/05/2020) (7) Constipation: Initially with constipation on admission. - Now with diarrhea after bowel regimen. - Stopped bowel regimen on 04/01. Monitor. (8) DVT prophylaxis: Eliquis for afib Admission and Anticipated Discharge Date Admission Date: March 28, 2020 Subjective Feeling well today. Less edema. Feeling less shortness of breath today. More encouraged. Reports no fevers/chills, chest pain, shortness of breath, abdominal pain, nausea, or vomiting. Physical Exam Constitutional: WD/WN, vitals as above Eyes: EOM intact bilaterally; no conjunctival abnormality ENMT: external ear and nose normal, oropharynx normal Neck: trachea midline, no thyromegaly normal visual inspection Respiratory: normal respiratory effort, lungs clear to auscultation no respiratory distress Cardiovascular: Rate/Rhythm: + tachycardic and + irregularly irregular Heart Sounds: normal S1 and normal S2 Extremities: + edema (Improving) Gastrointestinal (Abdomen): Inspection/Auscultation: abdomen normal to inspection; abdomen not distended Musculoskeletal: no cyanosis or clubbing, extremities motor strength 5/5 Skin: no rashes, warm and dry Neurologic: moves all extremities and awake Psychiatric: Orientation: alert, oriented to person and cooperative Results & Data Results & Data ([facility]) Vital Signs (Past 12 Hours) Vital Signs Temp Pulse Resp BP Pulse Ox 04/02/20 11:48 36.7 C 118 H 18 127/81 93 04/02/20 08:06 36.7 C 116 H 18 154/90 H 92 04/02/20 03:53 37.0 C 124 H 17 136/89 91 PG Care Time/CCT Total # of Minutes Spent Total Time Spent with Patient: Total time spent is greater than 50% in coordination of care (as documented) at patient's floor/unit and/or counseling patient: Coding Level of Care Code 54345 Subseq Hosp Care Lvl 2 Diagnoses Atrial fibrillation with RVR I48.91 Acute systolic ACC/AHA stage C congestive heart failure I50.21 Confusion R41.0 SHALOM (acute kidney injury) N17.9 Tobacco use Z72.0 Venous ulcers of both lower extremities I83.019; I83.029; L97.919; L97.929 Constipation K59.00 DVT prophylaxis Z29.9
[2020-04-02] MEDS: dilTIAZem HCL 30 MG TAB PO SCH ×2 (13:50→20:08)
[2020-04-02] MEDS: cefTRIAXone SODIUM 2,000 MG in DEXTROSE 5% 50 ML IV SCH (13:50)
[2020-04-02] MEDS: guaiFENesin 600 MG TABCR PO SCH (20:08)
[2020-04-02] MEDS ORDERED: BENZONATATE 100 MG CAPSULE PO ONE (21:33)
[2020-04-03] MEDS: METOPROLOL TARTRATE 25 MG TAB PO SCH ×5 (00:19→23:40)
[2020-04-03 07:15] LABS: Hematocrit (blood only) 38.5 % (37-47); Hemoglobin 12.7 g/dL (12.0-16.0); Mean Corpuscular Hemoglobin 28.9 pg (25-34); Mean Corpuscular Volume 87.7 fL (80-100); Mean Platelet Volume 10.9 fL (7.4-10.4); Platelet Count 226 K/uL (130-400); RDW Coefficient of Variation 16.4 % (11.5-14.5); RDW Standard Deviation 52.1 fL (36.4-46.3); Red Blood Count 4.39 M/uL (4.2-5.4); White Blood Count 8.83 K/uL (4.8-10.8)
[2020-04-03 07:44] LABS: BUN Creatinine Ratio 32.7 (10-20); Calcium 8.8 mg/dl (8.5-10.1); Creatinine Clr Calc Pharmacy 39.8 ml/min; Est GFR (African American) 44.5; Est GFR (Non-African American) 38.4; Magnesium 1.9 mg/dl (1.8-2.4); Potassium 4.3 mmol/L (3.5-5.1)
[2020-04-03] MEDS: FUROSEMIDE 40 MG in SYRINGE 0 ML IV SCH (08:45)
[2020-04-03] MEDS: dilTIAZem HCL 30 MG TAB PO SCH ×4 (08:46→19:51)
[2020-04-03] MEDS: APIXABAN 5 MG TABLET PO SCH ×2 (08:46→19:51)
[2020-04-03] MEDS: BACITRACIN OINT 15 GM TUBE EXT SCH ×2 (08:46→19:51)
[2020-04-03] MEDS: NICOTINE 21 MG/24 HR TDSY TD SCH (08:47)
[2020-04-03] MEDS: POTASSIUM CHLORIDE CRTAB 20 MEQ TABCR PO SCH (08:47)
--- NOTE | 2020-04-03 10:36 | Cardiology Progress Note ---
Date of Service April 03, 2020 Assessment & Plan (1) Atrial fibrillation with RVR: No symptoms. Heart rates improved with the addition of diltiazem. Will increase her dose slightly. I think would be reasonable to change her to long- acting agents certainly at the time of discharge. Metoprolol succinate 100 milligrams daily and diltiazem 180 milligrams daily. I think we have achieved adequate although not optimal rate control and if the patient is otherwise ready for discharge to rehab we could continue titrating her medications in the outpatient setting. She should continue her apixaban. (2) Cardiomyopathy: She has significantly reduced LV systolic function which likely accounts for some of her peripheral edema. She continues to have a good diuresis. He will be reasonable to consider switching her to an oral diuretic. 40 milligrams of Lasix daily would likely produce a good diuresis. Ideally she would be on an Lj inhibitor as well, but her renal function is not entirely normal. I would concentrate on good rate control with diltiazem metoprolol in the hopes that her reduced LV function is a consequence of her poorly controlled heart rates over a few weeks. If she does not affect good improvement in her LV function in several weeks than more aggressive medical management will be required. (3) Mitral regurgitation: Moderate to severe. Eccentric. Hopefully related to her cardiomyopathy. We will reassess once her rates have been well controlled. (4) Elevated troponin: No symptoms of chest pain or evidence of an acute coronary syndrome. Admission and Anticipated Discharge Date Admission Date: March 28, 2020 Subjective This morning the patient claims to be feeling well. She has been ambulatory to the bathroom. She denied limiting dyspnea. No dizziness. No sense of palpitation currently. No pain. Review of Systems Review of Systems: Per HPI Physical Exam Physical Exam: She is alert and oriented x3. Mood affect appear normal. She answered all questions appropriately. HEENT: Sclerae are anicteric. Pupils are equal and reactive to light and accommodation. Extraocular movements were intact. Neuro: Cranial nerves intact Cardiac: The rhythm was irregular. Abdomen: The abdomen was soft and nontender. Extremities: Patient has bilateral radial pulses that are equal in intensity. There is no evidence cyanosis or clubbing. moderate lower extremity edema. Legs are wrapped. Mild erythema. Skin: There are no rashes noted on examination today. Results & Data ([facility]) Vital Signs (Past 12 Hours) Vital Signs Temp Pulse Resp BP Pulse Ox 04/03/20 07:42 36.4 C L 84 16 127/76 98 04/03/20 03:56 36.5 C 109 H 18 127/80 95 04/03/20 00:21 36.5 C 101 H 16 150/89 H 89 L Laboratory Results Abnormal Lab Results 04/03/20 04/03/20 06:41 06:41 WBC 8.83 RBC 4.39 Hgb 12.7 Hct 38.5 MCV 87.7 MCH 28.9 MCHC 33.0 RDW Std Deviation 52.1 H RDW Coeff of Michelle 16.4 H Plt Count 226 MPV 10.9 H Sodium 138 Potassium 4.3 Chloride 107 Carbon Dioxide 25 Anion Gap 6.0 BUN 47 H Creatinine 1.42 H Est Cr Clr Drug Dosing 39.8 Est GFR ( Amer) 44.5 Est GFR (Non-Af Amer) 38.4 BUN/Creatinine Ratio 32.7 H Glucose 153 H Calcium 8.8 Magnesium 1.9 PG Care Time/CCT Total # of Minutes Spent Total Time Spent with Patient: Total time spent is greater than 50% in coordination of care (as documented) at patient's floor/unit and/or counseling patient: Coding Level of Care Code 67780 Subseq Hosp Care Lvl 2 Diagnoses Atrial fibrillation with RVR I48.91 Cardiomyopathy I42.9 Mitral regurgitation I34.0 Elevated troponin R77.8
--- NOTE | 2020-04-03 13:23 | Hospitalist Progress Note ---
Date of Service April 03, 2020 Assessment & Plan (1) Atrial fibrillation with RVR: Started on Cardizem drip in the ER. Troponin was elevated at 0.856 on admission. - Transitioned to beta-lynn and titrated off Cardizem. - Continue Eliquis. - 2D echo ordered - showed systolic cardiomyopathy likely from uncontrolled afib. - Increased metoprolol to 25 mg PO Q6h on 04/01. Added low-dose diltiazem on 04/02 for continued HR in the 100 - 115. - Increased diltiazem today. Improving rate control. (2) Acute systolic ACC/AHA stage C congestive heart failure: EF was 35 - 40% on 03/29/2020. Thought to be tachycardia-induced. - Continue Lasix 40 mg IV daily - Monitor weights and I&Os - Net negative 1.8L & weight is down to 76 kg today. (3) Confusion: Stroke alert was called on 03/30 AM. The confusion was short lived. CT head was negative. D/w [facility] at the time. No other workup required. - Resolved. (4) SHALOM (acute kidney injury): Baseline Cr. may be as high as 1.3 - 1.5, but not entirely clear as she has no prior work-up in our system. - Creatinine at 1.4 today, but coming down with diuresis. BUN creeping higher; may not want to go for much longer. - Monitor (5) Tobacco use: Discussion regarding cessation at bedside held, patient would like to quit, nicotine patch placed on the patient's arm while at bedside. - Smokes 10 cigarettes/day, discussed attempting to reduce this by few cigarettes per week to help her quit. (6) Venous ulcers of both lower extremities: Developed over the past month; likely due to hypervolemia. - Wound consulted - Wound culture of ulceration has been sent to the lab -> Serratia liquefaciens & MSSA. - Continue ceftriaxone (End date: 04/05/2020) (7) Constipation: Initially with constipation on admission. - Now with diarrhea after bowel regimen. - Stopped bowel regimen on 04/01. Monitor. (8) DVT prophylaxis: Eliquis for afib Admission and Anticipated Discharge Date Admission Date: March 28, 2020 Subjective Doing well today. No major issues. Breathing well. Reports no fevers/chills, chest pain, shortness of breath, abdominal pain, nausea, or vomiting. Physical Exam Constitutional: WD/WN, vitals as above Eyes: EOM intact bilaterally; no conjunctival abnormality ENMT: external ear and nose normal, oropharynx normal Neck: trachea midline, no thyromegaly normal visual inspection Respiratory: normal respiratory effort, lungs clear to auscultation no respiratory distress Cardiovascular: Rate/Rhythm: + tachycardic and + irregularly irregular Heart Sounds: normal S1 and normal S2 Extremities: + edema (Improving) Gastrointestinal (Abdomen): Inspection/Auscultation: abdomen normal to inspection; abdomen not distended Musculoskeletal: no cyanosis or clubbing, extremities motor strength 5/5 Skin: no rashes, warm and dry Neurologic: moves all extremities and awake Psychiatric: Orientation: alert, oriented to person and cooperative Results & Data Results & Data ([facility]) Vital Signs (Past 12 Hours) Vital Signs Temp Pulse Resp BP Pulse Ox 04/03/20 12:00 36.5 C 72 16 113/69 95 04/03/20 07:42 36.4 C L 84 16 127/76 98 04/03/20 03:56 36.5 C 109 H 18 127/80 95 PG Care Time/CCT Total # of Minutes Spent Total Time Spent with Patient: Total time spent is greater than 50% in coordination of care (as documented) at patient's floor/unit and/or counseling patient: Coding Level of Care Code 76330 Subseq Hosp Care Lvl 2 Diagnoses Atrial fibrillation with RVR I48.91 Acute systolic ACC/AHA stage C congestive heart failure I50.21 Confusion R41.0 SHALOM (acute kidney injury) N17.9 Tobacco use Z72.0 Venous ulcers of both lower extremities I83.019; I83.029; L97.919; L97.929 Constipation K59.00 DVT prophylaxis Z29.9
[2020-04-03] MEDS: cefTRIAXone SODIUM 2,000 MG in DEXTROSE 5% 50 ML IV SCH (13:45)
[2020-04-03] MEDS: guaiFENesin 600 MG TABCR PO SCH (19:51)
[2020-04-04] MEDS: METOPROLOL TARTRATE 25 MG TAB PO SCH (05:59)
[2020-04-04 06:58] LABS: Hematocrit (blood only) 38.2 % (37-47); Hemoglobin 12.2 g/dL (12.0-16.0); Mean Corpuscular Hemoglobin 28.2 pg (25-34); Mean Corpuscular Hgb Conc 31.9 g/dL (32-36); Mean Corpuscular Volume 88.2 fL (80-100); Mean Platelet Volume 9.9 fL (7.4-10.4); Platelet Count 192 K/uL (130-400); RDW Coefficient of Variation 16.2 % (11.5-14.5); RDW Standard Deviation 52.3 fL (36.4-46.3); Red Blood Count 4.33 M/uL (4.2-5.4)
[2020-04-04] MEDS: FUROSEMIDE 40 MG in SYRINGE 0 ML IV SCH (07:20)
[2020-04-04] MEDS: POTASSIUM CHLORIDE CRTAB 20 MEQ TABCR PO SCH (07:21)
[2020-04-04] MEDS: APIXABAN 5 MG TABLET PO SCH (07:21)
[2020-04-04] MEDS: NICOTINE 21 MG/24 HR TDSY TD SCH (07:22)
[2020-04-04] MEDS: dilTIAZem HCL 30 MG TAB PO SCH (07:22)
[2020-04-04] MEDS: BACITRACIN OINT 15 GM TUBE EXT SCH (07:23)
[2020-04-04 07:39] LABS: Calcium 8.6 mg/dl (8.5-10.1); Creatinine Clr Calc Pharmacy 53.5 ml/min; Est GFR (African American) 64.1; Est GFR (Non-African American) 55.3; Potassium 4.2 mmol/L (3.5-5.1)
[2020-04-04] MEDS ORDERED: METOPROLOL SUCC 50MG EXT REL TAB PO STA (10:49)
[2020-04-04] MEDS ORDERED: dilTIAZem HCL 120 MG CAPCR PO SCH (11:00)
--- NOTE | 2020-04-04 14:36 | Cardiology Progress Note ---
Date of Service April 04, 2020 Assessment & Plan (1) Atrial fibrillation with RVR: No symptoms. heart rate improved with addition of diltiazem. She will be switched to long-acting agents, 180 milligrams daily of diltiazem and 100 milligrams of metoprolol. Hopefully this will provide adequate rate control. Her follow-up in the clinic for continued adjustments. Continue apixaban. (2) Cardiomyopathy: Hopefully related to rapid heart rates. Will reassess in a couple of months. Continue beta-blockade. (3) Mitral regurgitation: Moderate to severe. Eccentric. Hopefully related to her cardiomyopathy. We will reassess once her rates have been well controlled. (4) Elevated troponin: Admission and Anticipated Discharge Date Admission Date: March 28, 2020 Subjective She continues report feeling well. She claims to have been ambulatory with a walker in the hallway yesterday. No limiting dyspnea. No dizziness. No sense of palpitation. No chest pain. Review of Systems Review of Systems: Per HPI Physical Exam Physical Exam: She is alert and oriented x3. Mood affect appear normal. She answered all questions appropriately. HEENT: Sclerae are anicteric. Pupils are equal and reactive to light and accommodation. Extraocular movements were intact. Neuro: Cranial nerves intact Cardiac: The rhythm was irregular. Abdomen: The abdomen was soft and nontender. Extremities: Patient has bilateral radial pulses that are equal in intensity. There is no evidence cyanosis or clubbing. moderate lower extremity edema. Legs are wrapped. Mild erythema. Skin: There are no rashes noted on examination today. Results & Data ([facility]) Vital Signs (Past 12 Hours) Vital Signs Temp Pulse Pulse Resp BP BP Pulse Ox 04/04/20 11:43 36.8 C 89 16 122/69 94 04/04/20 10:24 36.9 C 96 H 18 112/74 131/63 95 04/04/20 08:00 111 H 04/04/20 07:42 36.9 C 96 H 18 131/63 95 04/04/20 03:25 36.6 C 108 H 20 120/74 93 Pulse Ox 04/04/20 11:43 04/04/20 10:24 04/04/20 08:00 95 04/04/20 07:42 04/04/20 03:25 Laboratory Results Abnormal Lab Results 04/04/20 04/04/2021 06:43 06:43 09:58 WBC 8.00 RBC 4.33 Hgb 12.2 Hct 38.2 MCV 88.2 MCH 28.2 MCHC 31.9 L RDW Std Deviation 52.3 H RDW Coeff of Michelle 16.2 H Plt Count 192 MPV 9.9 Sodium 140 Potassium 4.2 Chloride 110 H Carbon Dioxide 27 Anion Gap 3.0 BUN 37 H Creatinine 1.05 Est Cr Clr Drug Dosing 53.5 Est GFR ( Amer) 64.1 Est GFR (Non-Af Amer) 55.3 BUN/Creatinine Ratio 35.0 H Glucose 99 Calcium 8.6 SARS-CoV-2 Ag (Rapid) Negative PG Care Time/CCT Total # of Minutes Spent Total Time Spent with Patient: Total time spent is greater than 50% in coordination of care (as documented) at patient's floor/unit and/or counseling patient: Coding Level of Care Code 51781 Subseq Hosp Care Lvl 2 Diagnoses Atrial fibrillation with RVR I48.91 Cardiomyopathy I42.9 Mitral regurgitation I34.0 Elevated troponin R77.8
--- NOTE | 2020-04-04 17:06 | Discharge Summary ---
Date of Service April 04, 2020 Admission HPI Per Admitting Provider This is a 64-year-old female with no past medical history other than significant smoking history, 1/2 to 1 pack cigarettes daily since age 23, currently smoking 10 cigarettes daily who presents with progressive leg edema x 1 month. She reports that she has been elevating her legs and drinking lots of water to try and flush things out to help alleviate swelling of the legs. She has not followed with family doctor for many years, and only takes Mucinex and an occasional Advil for pain. Within the past month she has had progressive orthopnea and now must sleep with at least 2 pillows so that she does not feel shortness of breath, and notes that her legs are weeping from multiple sores which are open in various locations over her lower legs. There are no juju areas of bright red infection around the weeping wounds, however has had issues with keeping her legs dry. She reports that up until 1 month ago she was able to lie flat had no issues with swelling ever before. Her sister is present with her at bedside, and was the one who prompted her sister to come to the ER after seeing her legs earlier today. The patient also notes that she is somewhat constipated, last bowel movement was 3 days ago which is unusual for her. She has been eating and drinking well otherwise. Her abdomen feels swollen and distended currently but denies any specific pain. Once in the ER patient was found to have elevated BNP= 24821, troponin = 0.856, EKG showing A. fib with rates in the 140s, and so was started on Cardizem drip in the ER at 5 mg/h. COVID-19 is negative. Pt lives in an apartment with a roommate and his girlfriend. Denies any surgical hx other than wisdom teeth removal. Family Hx: mother had breast cancer and of other advanced age and complications 4 years ago, father of bladder cancer, hypertension in both sides of the family. Principal Diagnosis Atrial fibrillation Possible tachycardia-induced cardiomyopathy Discharge Exam Constitutional WD/WN, vitals as above Eyes EOM intact bilaterally; no conjunctival abnormality ENMT external ear and nose normal, oropharynx normal Neck trachea midline, no thyromegaly normal visual inspection Respiratory normal respiratory effort, lungs clear to auscultation no respiratory distress Cardiovascular Rate/Rhythm: + tachycardic and + irregularly irregular Heart Sounds: normal S1 and normal S2 Extremities: + edema (Improving) Gastrointestinal (Abdomen) Inspection/Auscultation: abdomen normal to inspection; abdomen not distended Musculoskeletal no cyanosis or clubbing, extremities motor strength 5/5 Skin no rashes, warm and dry Neurologic moves all extremities and awake Psychiatric Orientation: alert, oriented to person and cooperative Discharge Data Allergies Allergy/AdvReac Type Severity Reaction Status Date / Time No Known Allergies Allergy Verified 03/28/20 17:02 Consultations 03/28/20 17:10 ED Decision to Admit Stat 03/28/20 19:59 Consult Cardiology Routine Consult Case Management - Discharge Planning Routine Ordered Studies 03/30/20 08:02 CT head/brain wo con Stat Hospital Course (1) Atrial fibrillation with RVR: Started on Cardizem drip in the ER. Troponin was elevated at 0.856 on admission. - Transitioned to beta-lynn and titrated off Cardizem. - Continue Eliquis. - 2D echo ordered - showed systolic cardiomyopathy likely from uncontrolled afib. - Discharged on: * Toprol XL 100 mg PO daily * Diltiazem CD 180 mg PO daily * * Follow up in [address] Qureshi to adjust medications/Lasix. (2) Acute systolic ACC/AHA stage C congestive heart failure: EF was 35 - 40% on 03/29/2020. Thought to be tachycardia-induced. - Continue Lasix 40 mg IV daily while inpatient. - Discharged on Lasix 40 mg PO daily -> Will titrate as outpatient. (3) Confusion: Stroke alert was called on 03/30 AM. The confusion was short lived. CT head was negative. D/w [facility] at the time. No other workup required. - Resolved. (4) SHALOM (acute kidney injury): Baseline Cr. may be as high as 1.3 - 1.5, but not entirely clear as she has no prior work-up in our system. - Creatinine at 1.0 on discharge. Can get BMP with Dr. Qureshi in 1-2 weeks. (5) Tobacco use: Discussion regarding cessation at bedside held, patient would like to quit, nicotine patch placed on the patient's arm while at bedside. - Smokes 10 cigarettes/day, discussed attempting to reduce this by few cigarettes per week to help her quit. (6) Venous ulcers of both lower extremities: Developed over the past month; likely due to hypervolemia. - Wound consulted - Wound culture of ulceration has been sent to the lab -> Serratia liquefaciens & MSSA. - Continued ceftriaxone while inpatient. Switch to Omnicef on discharge. (7) Constipation: Initially with constipation on admission. - Now with diarrhea after bowel regimen. - Stopped bowel regimen on 04/01. Monitor. (8) DVT prophylaxis: Eliquis for afib Total Time Total Time Spent Total Time Spent (In Minutes): 35 Discharge Plan Discharge Items Patient Disposition: Transfer Shelter Fac Reason For Visit: AFIB WITH RVR Discharge Diagnosis: Atrial fibrillation with rapid heart rate Condition on Discharge: Fair Activity: Resume your previous activity Non-emergency contact: Primary Care Provider and Historical Archeologist Call non-emergency contact if: your symptoms worsen Follow-up/Referrals: John Qureshi MD [Physician] - (Please see Dr. Qureshi in the clinic in 1 week to make sure your heart rate is still well-controlled.) PCP,NO [Primary Care Provider] - Diet: Heart Healthy Addtl Attending Provider Instructions: Ms. Jesus, You were admitted to the hospital with a rapid heart rate called atrial fibrillation. This happens when the top and bottom half of the heart have some trouble working together. With medication, we have returned your heart to a normal rate and we are also giving you some medication to help prevent any strokes which can be a result of atrial fibrillation. We are also sending a short course of antibiotics to your pharmacy. Your legs had some redness, though this may be from some swelling due to the heart issue. It is very important that you see the heart doctor (Dr. Qureshi) next week. He will likely adjust your medications slightly to make sure you are on the best regimen for your heart. Please call his office with any unexpected issues or new symptoms. Pending Studies at Discharge: No Stand-Alone Forms: My [facility] Skilled Items Patient informed of condition?: Yes DNR: No Discharge Level of Care: Skilled Communicable Disease: No Discharge Prognosis: Stable Lines: None Urinary Catheter: No Medications and DC Order Prescriptions: New bacitracin 500 unit/gram Ointment 1 applic EXT BID 7 Days Qty: 14 RF: 0 nicotine [Nicoderm CQ] 21 mg/24 hr Patch 24 Hour 21 mg transdermal QAM Qty: 14 RF: 0 Eliquis 5 mg Tablet 5 mg PO BID Qty: 60 RF: 0 furosemide 40 mg tablet 40 mg PO DAILY Qty: 30 RF: 0 diltiazem HCl [Cardizem CD] 180 mg capsule,extended release 24hr 180 mg PO DAILY Qty: 30 RF: 0 metoprolol succinate 100 mg tablet extended release 24 hr 100 mg PO DAILY Qty: 30 RF: 0 cephalexin [Keflex] 750 mg capsule 750 mg PO TID 2 Days Qty: 6 RF: 0 Discontinued ibuprofen [Advil] 200 mg Tablet 200 mg PO DIRECTED PRN (Reason: Pain) RF: 0 Mucinex DM 30-600 mg Tablet Extended Release 12 Hr 1 tab PO QAM RF: 0 Discharge Orders: Discharge Order (Routine); Ordered 04/04/20 Ordered By: Levi Rogers/Other Patient Handouts: Prediabetes, Exercise to Manage Your Blood Sugar, 5 Steps for Eating Healthier, A1C Admission Data Admit Date/Time: 03/28/20 18:17 Attending Provider: Levi Waldrop Admit Provider: Cj Hendrickson Primary Care Provider: PCP,NO Other Providers: John Qureshi ; Levi Waldrop ; Hortencia Luna Other Interventions: Discharge Summary Assessment (RN) Last Done: 04/04/20 10:24 Coding Level of Care Code D/C Day Management >30 mins Diagnoses Atrial fibrillation with RVR I48.91 Acute systolic ACC/AHA stage C congestive heart failure I50.21 Confusion R41.0 SHALOM (acute kidney injury) N17.9 Tobacco use Z72.0 Venous ulcers of both lower extremities I83.019; I83.029; L97.919; L97.929 Constipation K59.00 DVT prophylaxis Z29.9
--- NOTE | 2020-04-17 11:09 | Coding Query ---
To promote full compliance with coding requirements relating to patient care, provider participation is requested in all cases of medical office technology instructor uncertainty. Please assist us with the question(s) below: Coding Question(s): The diagnosis below was documented in the PROGRESS NOTES ON 03/30/20 AND 03/31/20, then subsequently fell off all further documentation, and Confusion was documented. Please indicate if it is still a possible diagnosis or ruled out. Physician's Response(s): METABOLIC ENCEPHALOPATHY ( ) Diagnosed and POA ( ) Diagnosed and not POA ( x ) Ruled out ( ) Other (please specify) MTDD
== END 2020-04-04 13:11 | DRG 308 ==
LOC: MERGE 14:20 → ED 14:20 → SUATTDRO 18:17 → 2S 18:17